=== PATIENT | female | born 1935 | race Caucasian/White ===

== ENCOUNTER 2020-08-20 16:50 | Outpatient (REF) | payer MEDICARE, SELFPAY | END 2020-08-20 16:51 | disposition home or self-care (01) | LOC: HO.LNP 16:50 | PROVIDERS: Visit Provider Hospitalist | DX: R30.0 Dysuria (principal) | CPT/HCPCS: 87086; 87088; 87186 ==

== ENCOUNTER 2020-09-02 15:04 | Outpatient (REF) | payer MEDICARE, SELFPAY ==
[2020-09-02 17:24] LABS: Free T4 (Free Thyroxine) 0.97 ng/dL (0.71-1.85); Thyroid Stimulating Hormone 1.64 uIU/mL (0.32-4.0)
== END 2020-09-02 15:05 | disposition home or self-care (01) ==
LOC: HO.LAB 15:04
PROVIDERS: PCP Nurse Practitioner Family; Visit Provider Internal Medicine Endocrinology, Diabetes & Metabolism
DX: E04.2 Nontoxic multinodular goiter (principal)
CPT/HCPCS: 36415; 84439; 84443

== ENCOUNTER → 2020-09-07 10:07 | Outpatient (BNVA) | payer MEDICARE, SELFPAY | PROVIDERS: PCP Nurse Practitioner Family; Visit Provider Internal Medicine Endocrinology, Diabetes & Metabolism | DX: Z13.89 Encounter for screening for other disorder (principal) | CPT/HCPCS: 99212 ==

== ENCOUNTER 2020-10-12 11:37 | Outpatient (REF) | payer MEDICARE, SELFPAY ==
--- NOTE | ~2020-10-12 | MM_ITS ---
EXAMINATION: MM SCREENING DIGITAL BREAST TOMOSYNTHESIS, RIGHT CLINICAL INFORMATION: Screening. Asymptomatic. History left mastectomy 2004. Due for yearly exam. COMPARISON: Mammography: 10/25/2018, 10/20/2017, 09/28/2016 TECHNIQUE: Digital breast tomosynthesis is performed in both the craniocaudal and mediolateral oblique views along with computer-aided detection (CAD). Synthesized 2D images are generated from the tomosynthesis. FINDINGS: There are scattered areas of fibroglandular density (ACR BI-RADS breast composition Category b). There are no significant masses, abnormal calcifications, or other abnormalities. There is no developing density. Scattered ductal secretory, vascular, and small round calcifications are again seen. The axilla and skin contours are unremarkable. MM/MM tomosynthesis screening RT IMPRESSION: No mammographic evidence of malignancy. ASSESSMENT: BI-RADS 2: Benign RECOMMENDATION: Routine annual mammography screening. This patient's information was entered into a reminder system with a target due date for their next mammogram.
== END 2020-10-12 11:38 | disposition home or self-care (01) ==
LOC: HO.MAMMO 11:37
PROVIDERS: PCP Nurse Practitioner Family; Visit Provider Internal Medicine Medical Oncology
DX: Z12.31 Encounter for screening mammogram for malignant neoplasm of breast (principal)
CPT/HCPCS: 77063; 77067

== ENCOUNTER 2020-11-16 09:47 | Outpatient (REF) | payer MEDICARE, SELFPAY ==
--- NOTE | ~2020-11-16 | US_ITS ---
EXAMINATION: US THYROID CLINICAL INFORMATION: Nontoxic multinodular goiter. COMPARISON: Ultrasound soft tissue head/neck thyroid dated 11/14/2019 and 08/02/2018. TECHNIQUE: Linear transducer grayscale and color Doppler examination with attention to the region of the thyroid. FINDINGS: SIZE: Measurements of the thyroid lobes and nodules are given in sagittal, anteroposterior and transverse dimensions respectively. Right Thyroid Lobe: 7.2 x 4.3 x 5.4 cm, volume 88.3 mL. Previously 7.1 x 3.9 x 5.1 cm, volume 73.2 mL. Parenchyma: The gland echotexture is heterogeneous. Thyroid vascularity is increased. Left Thyroid Lobe: 2.9 x 1.4 x 1.5 cm, volume 3.1 mL. Previously 2.2 x 1.5 x 1.2 cm, volume 3.2 mL. Parenchyma: The gland echotexture is homogeneous. Thyroid vascularity is normal. Isthmus: 0.6 cm in maximum AP dimension. Previously 0.6 cm. Estimated total number of nodules greater than or equal to 1 cm: Question 1. There is a question of replacement of the entire right lobe with a complex partially solid partially cystic nodule with calcification. Does not appear appreciably changed radius exams. NODES: No lymphadenopathy is seen in the tissue surrounding the thyroid gland. US/US thyroid IMPRESSION: Enlarged right lobe. The right lobe is heterogeneous and hypervascular. There is again question of replacement of the entire right lobe with a complex partially solid partially cystic nodule with calcifications. This does not appear appreciably changed from previous exams.
== END 2020-11-16 09:48 | disposition home or self-care (01) ==
LOC: HO.US 09:47
PROVIDERS: PCP Nurse Practitioner Family; Visit Provider Internal Medicine Endocrinology, Diabetes & Metabolism
DX: E04.2 Nontoxic multinodular goiter (principal)
CPT/HCPCS: 76536

== ENCOUNTER → 2021-03-02 09:07 | Outpatient (BNV) | payer MEDICARE, SELFPAY | PROVIDERS: Visit Provider Internal Medicine Medical Oncology | DX: Z85.3 Personal history of malignant neoplasm of breast (principal) | CPT/HCPCS: 99213 ==

== ENCOUNTER 2021-09-08 09:57 | Outpatient (REF) | payer MEDICARE, SELFPAY ==
--- NOTE | ~2021-09-08 | US_ITS ---
EXAMINATION: US THYROID CLINICAL INFORMATION: Nontoxic multinodular goiter. COMPARISON: Thyroid ultrasound 11/16/2020 and 11/14/2019. Ultrasound-guided thyroid biopsy 11/01/2018. TECHNIQUE: Linear transducer hui-scale and color Doppler examination with attention to the region of the thyroid. FINDINGS: SIZE: Measurements of the thyroid lobes and nodules are given in sagittal, anteroposterior and transverse dimensions respectively. Right Thyroid Lobe: 7.8 x 4.7 x 6.8 cm, volume 128.3 mL. Previously 7.2 x 4.3 x 5.4 cm, volume 88.3 mL. Parenchyma: The gland echotexture is heterogeneous. Thyroid vascularity is increased. Left Thyroid Lobe: 3.5 x 1.5 x 1.2 cm, volume 3.3 mL. Previously 2.9 x 1.4 x 1.5 cm, volume 3.1 mL. Parenchyma: The gland echotexture is homogeneous. Thyroid vascularity is normal. Isthmus: 0.4 cm in maximum AP dimension. Previously 0.6 cm. Estimated total number of nodules greater than or equal to 1 cm: 1. 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 Location: Entire right lobe. It is heterogeneous, irregular shaped, with no increased echogenicity. NODES: No lymphadenopathy is seen in the tissue surrounding the thyroid gland. US/US thyroid IMPRESSION: Significantly enlarged right thyroid gland from a large nodule occupying the entire gland. ACR TI-RADS RECOMMENDATION REFERENCE: Ultrasound-guided fine-needle aspiration, followup ultrasound, no further follow up. * TR1 (0 point) and TR 2 (2 points): No FNA or follow up * TR3 (3 points): FNA if more than or equal to 2.5 cm in maximum dimension, followup ultrasound in 1, 3 and 5 years if 1.5 to 2.4 cm in maximum dimension. * TR4 (4-6 points): FNA if more than or equal to 1.5 cm in maximum dimension, followup ultrasound in 1, 2, 3 and 5 years if 1 to 1.4 cm in maximum dimension. * TR5 (more than or equal to 7 points): FNA if more than or equal to 1 cm in maximum dimension, followup ultrasound every year for 5 years if 0.5 to 0.9 cm in maximum dimension. * TR3, TR4 or TR5 nodules that are below the size threshold for follow up receive no follow up.
== END 2021-09-08 09:58 | disposition home or self-care (01) ==
LOC: HO.US 09:57
PROVIDERS: Visit Provider Internal Medicine Endocrinology, Diabetes & Metabolism
DX: E04.2 Nontoxic multinodular goiter (principal)
CPT/HCPCS: 76536

== ENCOUNTER → 2021-09-17 13:56 | Outpatient (BNVA) | payer MEDICARE, SELFPAY | PROVIDERS: PCP Nurse Practitioner Family; Visit Provider Internal Medicine Endocrinology, Diabetes & Metabolism | DX: E04.2 Nontoxic multinodular goiter (principal) | CPT/HCPCS: 99212 ==

== ENCOUNTER 2021-09-29 09:54 | Outpatient (REF) | payer MEDICARE, SELFPAY ==
[2021-09-29 11:08] LABS: Alanine Aminotransferase 20 U/L (0-31); Alkaline Phosphatase 67 U/L (39-117); Anion Gap 11 (12-20); Aspartate Amino Transferase 24 U/L (5-31); Bilirubin Total 0.7 mg/dL (0.0-1.0); Blood Urea Nitrogen 11 mg/dL (9-16); Calcium 9.8 mg/dL (8.4-10.2); Carbon Dioxide 30 mmol/L (22-29); Chloride 97 mmol/L (96-108); Cholesterol 163 mg/dL; Estimated Glomerular Filt Rate > 60; Glucose Fasting 116 mg/dL (60-99); HDL Cholesterol 61 mg/dL; LDL Cholesterol Calculated 86 mg/dl; Potassium 4.4 mmol/L (3.3-5.1); Sodium 134 mmol/L (135-145); Total Protein 6.4 g/dL (6.5-8.0); Triglycerides 84 mg/dL
[2021-09-29 11:32] LABS: Free T4 (Free Thyroxine) 0.99 ng/dL (0.71-1.85); Thyroid Stimulating Hormone 2.02 uIU/mL (0.32-4.0)
[2021-09-29 15:56] LABS: Appearance Urine CLEAR; Color Urine YELLOW; Glucose Urine UA NEG (NEG); Leukocyte Esterase Urine 2+ (NEG); Nitrite Urine POS (NEG); UACC Culture Trigger YES; Urine Blood NEG (NEG); Urine Ketones NEG (NEG); Urine Protein NEG (NEG-TRACE)
[2021-09-29 16:08] LABS: Bacteria Urine 4+ /LPF; RBC Urine 0 /HPF (0); Squamous Epithelial Cell Urine 1+ /LPF
== END 2021-09-29 09:55 | disposition home or self-care (01) ==
LOC: HO.LAB 09:54
PROVIDERS: PCP Nurse Practitioner Family; Visit Provider Internal Medicine Endocrinology, Diabetes & Metabolism
DX: E04.2 Nontoxic multinodular goiter (principal); I10 Essential (primary) hypertension
CPT/HCPCS: 36415; 80053; 80061; 81001; 81003; 84439; 84443; 87086

== ENCOUNTER 2021-10-13 11:47 | Outpatient (REF) | payer MEDICARE, SELFPAY ==
--- NOTE | ~2021-10-13 | MM_ITS ---
EXAMINATION: MM SCREENING DIGITAL BREAST TOMOSYNTHESIS, RIGHT CLINICAL INFORMATION: Left mastectomy, 2005. Due for yearly exam. Screening. COMPARISON: Mammography: 10/12/2020, 10/25/2018, 10/20/2017, 09/28/2016 TECHNIQUE: Digital breast tomosynthesis is performed in both the craniocaudal and mediolateral oblique views along with computer-aided detection (CAD). Synthesized 2D images are generated from the tomosynthesis. FINDINGS: There are scattered areas of fibroglandular density (ACR BI-RADS breast composition Category b). Findings fibronodular parenchymal pattern is similar to prior studies. There are scattered vascular and ductal secretory and some round calcifications again noted. No developing density or interval architectural abnormality. The axilla and skin contours are unremarkable. MM/MM tomosynthesis screening RT IMPRESSION: No mammographic evidence of malignancy. ASSESSMENT: BI-RADS 2: Benign RECOMMENDATION: Routine annual mammography screening. This patient's information was entered into a reminder system with a target due date for their next mammogram.
== END 2021-10-13 11:48 | disposition home or self-care (01) ==
LOC: HO.MAMMO 11:47
PROVIDERS: PCP Nurse Practitioner Family; Visit Provider Internal Medicine Medical Oncology
DX: Z12.31 Encounter for screening mammogram for malignant neoplasm of breast (principal)
CPT/HCPCS: 77063; 77067

== ENCOUNTER 2021-10-20 10:48 | Outpatient (REF) | payer MEDICARE, SELFPAY ==
--- NOTE | ~2021-10-20 | MM_ITS ---
EXAMINATION: BONE DENSITOMETRY CLINICAL INDICATION: Asymptomatic menopausal state. COMPARISON: Previous BD dated 10/25/2018 and baseline BD dated 10/18/2007. TECHNIQUE: Using a [employer] DXA System (software version: 13.1) manufactured by [employer], dual-energy x-ray absorptiometry was performed of the lumbar spine and right hip. The images are of good technical quality. Summary results are attached. FINDINGS: AP SPINE L1-L4: Current: BMD 1.323 g/cm2, Z-score 2.6, T-score 1.2, normal, 0.7% decrease from previous, 10.4% increase from baseline (<5% change is not significant). Prior: BMD 1.332 g/cm2. Baseline: BMD 1.198 g/cm2. RIGHT FEMUR, NECK: Current: BMD 1.042 g/cm2, Z-score 2.1, T-score 0.0, normal. Prior: BMD 0.997 g/cm2. Baseline: BMD 1.005 g/cm2. RIGHT FEMUR, TOTAL: Current: BMD 1.070 g/cm2, Z-score 2.5, T-score 0.5, normal, 2.6% increase from previous, 0.2% decrease from baseline (<5% change is not significant). Prior: BMD 1.043 g/cm2. Baseline: BMD 1.072 g/cm2. IDENTIFIED RISK FACTORS: Height loss, thiazide, menopause, hysterectomy. HISTORY OF FRACTURE: None listed. MEDICATIONS: Calcium supplements or multivitamin, vitamin D. MM/XR DEXA axial skeleton IMPRESSION: 1. DIAGNOSIS: Normal bone density based on the lowest T-score value of 0.0 in the femoral neck applying World Health Organization criteria. 2. 10-YEAR FRACTURE RISK PREDICTION, FRAX: According to the guidelines, FRAX calculation should only be performed on patients in the osteopenia bone density category. Therefore, FRAX was not performed on this patient. 3. Treatment Recommendations: NOF guidelines recommend consideration for treatment in postmenopausal women and men age 50 and older presenting with the following: -A hip or vertebral (clinical or morphometric) fracture. -T-score less than or equal to -2.5 at the femoral neck or spine after appropriate evaluation to exclude secondary causes. -Low bone mass at the hip or spine and a 10-year fracture probability by FRAX of greater than or equal to 3% for hip fracture or greater than or equal to 20% for major osteoporotic fracture based on the [place] adapted WHO algorithm. 4. Other Recommendations: All treatment decisions require clinical judgment and consideration of individual patient factors, including patient preferences, comorbidities, previous drug use, risk factors not captured in the FRAX model (e.g. frailty, falls, vitamin D deficiency, increased bone turnover, interval significant decline in bone density) and possible under or overestimation of fracture risk by FRAX. FUTURE SCAN RECOMMENDATION: People with diagnosed cases of osteoporosis or at high risk for fracture should have regular bone mineral density tests. For patients eligible for Medicare, routine testing is allowed once every 2 years. The testing frequency can be increased to one year for patients who have rapidly progressing disease, those who are receiving or discontinuing medical therapy to restore bone mass, or have additional risk factors.
== END 2021-10-20 10:49 | disposition home or self-care (01) ==
LOC: HO.MAMMO 10:48
PROVIDERS: PCP Nurse Practitioner Family; Visit Provider Nurse Practitioner Family
DX: Z13.820 Encounter for screening for osteoporosis (principal); Z78.0 Asymptomatic menopausal state; Z79.899 Other long term (current) drug therapy; Z90.710 Acquired absence of both cervix and uterus
CPT/HCPCS: 77080

== ENCOUNTER 2022-03-29 09:25 | Outpatient (REF) | payer MEDICARE, SELFPAY ==
[2022-03-29 11:29] LABS: MANUAL DIFF FLAG NO
[2022-03-29 11:43] LABS: Basophils Percent Auto 0.4 % (0-2); Eosinophils Absolute Auto 0.1 X10*3/uL (0.0-0.4); Eosinophils Percent Auto 2.6 % (0-4); Hematocrit 39.7 % (37.0-47.0); Hemoglobin 13.2 g/dl (12.0-16.0); Imm Gran Abs Auto 0.03 X10*3/uL (0.00-0.03); Imm Gran Pct Auto 0.6 % (0.0-0.4); Lymphocytes Percent Auto 17.9 % (20-40); Mean Corpuscular HGB Conc 33.2 g/dl (31.0-35.0); Mean Corpuscular Hemoglobin 29.9 pg (27.0-33.0); Mean Platelet Volume 10.6 fL (9.4-12.3); Monocytes Absolute Auto 0.7 X10*3/uL (0.1-1.2); Monocytes Percent Auto 12.9 % (2-11); Neutrophils Absolute Auto 3.5 x10*3/uL (2.0-8.3); Neutrophils Percent Auto 65.6 % (45-73); Platelet Count 248 X10*3/uL (160-400); Red Blood Count 4.41 X10*6/uL (4.20-5.50); Red Cell Distribution Width 13.7 % (11.0-16.0); White Blood Count 5.4 X10*3/uL (4.8-10.8)
[2022-03-29 11:59] LABS: Alanine Aminotransferase 20 U/L (0-31); Albumin Level 4.2 g/dL (3.5-5.0); Alkaline Phosphatase 69 U/L (39-117); Anion Gap 15 (12-20); Aspartate Amino Transferase 27 U/L (5-31); Blood Urea Nitrogen 9 mg/dL (9-16); Calcium 9.3 mg/dL (8.4-10.2); Carbon Dioxide 29 mmol/L (22-29); Chloride 94 mmol/L (96-108); Cholesterol 159 mg/dL; Estimated Glomerular Filt Rate > 60; Glucose Fasting 104 mg/dL (60-99); HDL Cholesterol 63 mg/dL; LDL Cholesterol Calculated 81 mg/dl; Potassium 4.4 mmol/L (3.3-5.1); Sodium 134 mmol/L (135-145); Total Protein 6.7 g/dL (6.5-8.0); Triglycerides 79 mg/dL
[2022-03-29 14:33] LABS: Appearance Urine Clear; Color Urine Yellow; Glucose Urine UA Negative (Negative); Leukocyte Esterase Urine Large (3+) (Negative); Nitrite Urine Positive (Negative); PH 6.5 (5.0-9.0); UMIC TRIGGER UACC YES; Urine Blood Negative (Negative); Urine Ketones Negative (Negative); Urine Protein Negative (Neg-Trace)
[2022-03-29 15:00] LABS: Bacteria Urine 4+ (None Seen); Hyaline Casts Urine 0-2 /LPF (0-2); RBC Urine 0-2 /HPF (0-2); Squamous Epithelial Cell Urine 0-2 /HPF (0-2); UACC Culture Trigger YES; WBC Urine 21-50 /HPF (0-5)
[2022-04-01 00:23] LABS: TS Negative Control Passed; TS Panel A 0; TS Panel B 0; TS Positive Control Passed; TSpotTB Negative (Negative)
== END 2022-03-29 09:26 | disposition home or self-care (01) ==
LOC: HO.HMGCLDS 09:25
PROVIDERS: PCP Nurse Practitioner Family; Visit Provider Nurse Practitioner Family
DX: Z11.1 Encounter for screening for respiratory tuberculosis (principal); I10 Essential (primary) hypertension
CPT/HCPCS: 36415; 80053; 80061; 81001; 85025; 86481; 87086; 87088; 87186

== ENCOUNTER → 2022-09-20 09:57 | Outpatient (BNVA) | payer MEDICARE, SELFPAY | PROVIDERS: PCP Nurse Practitioner Family; Visit Provider Internal Medicine Endocrinology, Diabetes & Metabolism | DX: E04.2 Nontoxic multinodular goiter (principal) | CPT/HCPCS: 36415; 84439; 84443; 99212 ==

== ENCOUNTER 2022-10-31 09:40 | Outpatient (REF) | payer MEDICARE, SELFPAY ==
--- NOTE | ~2022-10-31 | MM_ITS ---
EXAMINATION: MM SCREENING DIGITAL BREAST TOMOSYNTHESIS, RIGHT CLINICAL INFORMATION: Due for yearly. Screening. Prior left mastectomy, 2004. COMPARISON: Mammography: 10/13/2021, 10/12/2020, 10/25/2018 TECHNIQUE: Digital breast tomosynthesis is performed in both the craniocaudal and mediolateral oblique views along with computer-aided detection (CAD). Synthesized 2D images are generated from the tomosynthesis. FINDINGS: There are scattered areas of fibroglandular density (ACR BI-RADS breast composition Category b). There are no significant masses, abnormal calcifications, or other abnormalities. There are scattered ductal secretory and vascular and some benign round calcifications again noted. The axilla and skin contours are unremarkable. No significant changes from prior studies. MM/MM tomosynthesis screening RT IMPRESSION: No mammographic evidence of malignancy. ASSESSMENT: BI-RADS 2: Benign RECOMMENDATION: Routine annual mammography screening. This patient's information was entered into a reminder system with a target due date for their next mammogram.
== END 2022-10-31 09:41 | disposition home or self-care (01) ==
LOC: HO.MAMMO 09:40
PROVIDERS: PCP Nurse Practitioner Family; Visit Provider Nurse Practitioner Family
DX: Z12.31 Encounter for screening mammogram for malignant neoplasm of breast (principal)
CPT/HCPCS: 77063; 77067

== ENCOUNTER → 2023-01-04 09:45 | Outpatient (REF) | payer MEDICARE, SELFPAY ==
--- NOTE | 2023-01-04 09:48 | CA_ITS ---
Transthoracic Echocardiogram Patient (Last, First, Middle): Velia Esparza, Gender: Female Date of : 1935 Age: 87 Procedure Date: 01/04/2023 Procedure Type: Transthoracic Echocardiogram Location: OP Height: 187.96 cm Weight: 72.58 kg BSA: 1.98 m2 Heart Rate: 69 bpm BP: 148 / 70 mmHg Gun Perforator: JANAY Referring MD: David Lane [facility] Health Information Provider: Galdino Fonseca MD Symptoms: R01.1 - Cardiac murmur, unspecified Study Quality: Adequate ECG Rhythm: Sinus Conclusions: - 1. Normal LV systolic function with pseudonormal filling pattern 2. Mildly dilated left atrium 3. Normal cardiac valvular Doppler 4. Moderately elevated right ventricular systolic pressure 5. No gross pericardial effusion Findings Left Ventricle Normal left ventricular size, thickness, and systolic function. The visually estimated ejection fraction is between 60-65%. Spectral Doppler is indicative of a pseudonormal filling pattern. E/E prime ratio is between 8 and 15 consistent with indeterminate filling pressures. Peak GLS is -14.1%, which is mildly reduced. Right Ventricle Normal right ventricular cavity size and systolic function. Atria The left atrium is mildly dilated. There is no evidence of interatrial shunt. The right atrium is likely dilated. Aortic Valve There is mild calcification of the aortic valve. There is no evidence of thickening of the aortic valve. There is no aortic valve stenosis. There is no aortic valve regurgitation. Mitral Valve There is mild anterior and posterior mitral leaflet thickening. There is trace mitral valve regurgitation. There is no mitral valve stenosis. Pulmonic Valve The pulmonic valve is likely normal. There is trace to mild pulmonic valve regurgitation. Tricuspid Valve Normal tricuspid valve structure. There is mild tricuspid valve regurgitation. Normal right atrial pressure. Mild pulmonary hypertension is present. Great Vessels All visible segments of the aorta are normal in size. The pulmonary artery was not well visualized. Venous The inferior vena cava is normal in size and collapses greater than 50% with inspiration. Pericardium/Pleural There is no evidence of pericardial effusion. Prior Study Comparison No prior study available for comparison. Measurements 2D Linear Measurements IVSd: 0.90 0.6-0.9/0.6-1.0 cm LVIDd: 4.80 3.9-5.3/4.2-5.9 cm LVIDd Index: 2.42 2.4-3.2/2.2-3.1 cm/m2 LVIDs: 3.10 2.0-3.6 cm LVPWd: 0.80 0.7-1.1 cm LA Diam: 3.30 2.7-3.8/3.0-4.0 cm LAIDs Index: 1.67 1.5-2.3 cm/m2 LV Mass: 170.59 67-162/88-224 g LV Mass Index: 86.16 43-95/49-115 g/m2 LVOT Diam: 2.00 3.0+(-)1.3 cm 2D Systolic Function EF 4C: 50.40 >55% EF 2C: 71.50 >55% EF BiP: 62.00 >55% Mitral Valve MV Pk E: 0.89 MV PK A: 0.34 MV Decel Time: 229.00 E/A: 2.60 E'Lateral: 7.51 E'Medial: 5.44 E/E' Med: 16.40 E/E' Lat: 11.90 PHT: 67.00 MVA PHT: 3.28 Decel [place]: 3.90 Aortic Valve AoV Pk Josue: 1.31 AoV Pk Grad: 7.00 JOSEY: 2.33 LVOT LVOT Pk Josue: 0.92 LVOT Mn Josue: 0.68 LVOT VTI: 0.22 LVOT Pk Grad: 3.00 LVOT Mn Grad: 2.00 LVOT Diam: 2.00 LVOT Area: 3.14 Diastolic Function MV Pk E: 0.89 MV Pk A: 0.34 E/A: 2.60 E'Medial: 5.44 E/E' Med: 16.40 E' Laterial: 7.51 E/E' Lat: 11.90 Right Ventricle TAPSE (mm): 23.00 TVS' Josue: 12.60 Tricuspid Valve TR Pk Josue: 3.39 TR Pk Grad: 46.00 RA Press: 3.00 RVSP: 49.00 Great Vessels Aorta Sinus of Valsalva: 3.10 2.0-3.5 cm Ao Asc: 3.20 2.1-3.4 cm Pulmonary Veins Pulm Vein S/D 0.50 Pulmonary Valve PV Pk Josue: 0.64 Peak PV Grad: 2.00 Updated in Other Vendor System with Status of Final Galdino Fonseca MD electronically signed on 01/04/2023 12:58:14 PM with status of Final
== END ==
LOC: HO.CARD 09:45
PROVIDERS: PCP Nurse Practitioner Family; Visit Provider Nurse Practitioner Family
DX: R01.1 Cardiac murmur, unspecified (principal)
CPT/HCPCS: 93306; 93356

== ENCOUNTER → 2023-01-04 09:48 | Outpatient (BNV) | payer MEDICARE, SELFPAY | PROVIDERS: PCP Nurse Practitioner Family; Visit Provider Internal Medicine Cardiovascular Disease | DX: I35.8 Other nonrheumatic aortic valve disorders (principal); I36.1 Nonrheumatic tricuspid (valve) insufficiency | CPT/HCPCS: 93306 ==

== ENCOUNTER 2023-04-18 12:04 | Outpatient (AMB) | payer MEDICARE, SELFPAY ==
--- NOTE | 2023-04-18 14:05 | AM.OFFWIN_ITS ---
Intake Vital Signs 04/18/23 14:06 Height 5 ft 2 in Weight 159 lb 2 oz BMI 29.1 BP 130/80 Blood Pressure Location Rt brachial Position Sitting Pulse 86 Pulse Source Pulse Oximeter Temp 98.6 F Temp Source Oral Pulse Oximetry (%) 99 Oxygen Delivery Method Room Air Intake Visit Reasons: EST/SOB, Diarrhea, weakness ongoing(masked lobby) Intake Note: pt had her PCV vaccine Fri and started with Flu sx 8 hrs later Sat she Had a fever Sun no fever but she has diarrhea and she feels weak and has no appetite Patient Tobacco Use Status: Never used Tobacco Allergies codeine [Codeine] Allergy (Mild, Verified 04/18/23 14:37) VOMITING sulfamethoxazole [From Bactrim] Allergy (Mild, Verified 04/18/23 14:37) Headache trimethoprim [From Bactrim] Allergy (Mild, Verified 04/18/23 14:37) Headache atorvastatin [Lipitor] Adverse Reaction (Unknown, Verified 04/18/23 14:37) Myalgia Codeine Sulfate Adverse Reaction (Unknown, Uncoded 04/18/23 14:37) Vomiting Medication List - Last Reconciled 04/18/23 by Davdi Bradley MD albuterol sulfate 90 mcg/actuation (ProAir HFA) 2 puffs inhalation Q6H PRN 30 days ascorbate calcium (vitamin C) 500 mg PO DAILY aspirin (Adult Low Dose Aspirin) 81 mg PO DAILY atenolol 25 mg PO DAILY atorvastatin 20 mg PO DAILY cholecalciferol (vitamin D3) 25 mcg PO DAILY gabapentin 300 mg PO DAILY hydrochlorothiazide 12.5 mg PO DAILY tkgwkire-afn-pluk-FA-vit K-lut 8 mg iron-400 mcg-50 mcg (Centrum Silver Women) 1 tab PO DAILY HPI EST/SOB, Diarrhea, weakness ongoing(masked lobby) HPI Details 87-year-old female presents to the [facility] for a sick visit. Patient had a pneumonia shot on Monday last. 8 hours after the injection, she started having headache, low-grade fever and nausea. Symptoms lasted for 2 days and she started having diarrhea. Diarrhea was mostly during the daytime. Minimal cramping. Today she is feeling slightly short of breath. [facility] Medical History (Updated 04/18/23 @ 14:53 by David Bradley MD) Atrial fibrillation Nail fungus Non-toxic multinodular goiter Surgical History Hx of blepharoplasty Hx of cholecystectomy Hx of appendectomy Hx of hysterectomy History of left hip replacement Hx of total knee replacement H/O total mastectomy of left breast Family History Other No family history of cancer Social History Household Members: None Housing: House Are you a primary care navigator to a significant other at home: No Do you presently have visiting nurse or other home services: No Alcohol intake: current Patient Tobacco Use Status: Never used Tobacco e-Cigarette/Vaping Use: Never Used Second Hand Smoke Exposure: No service: No Current occupational status: retired Cognitive needs: No Hearing needs: No Vision needs: No Physical Exam Vital Signs: Last Vital Signs Temp 98.6 F 04/18/23 14:06 Pulse 86 04/18/23 14:06 BP 130/80 04/18/23 14:06 Pulse Ox 99 04/18/23 14:06 Oxygen Delivery Method Room Air 04/18/23 14:06 BMI result Body Mass Index 29.1 Const General: cooperative and healthy appearing Nutritional Appearance: well nourished Orientation/consciousness: patient oriented x3 Limitations: no limitations HEENT Head: Yes normal to inspection Eyes General: appearance normal, both eyes and all related structures Neck Neck: Yes normal visual inspection Chest Chest palpation & inspection: normal palpation of entire chest wall Resp Effort & Inspection: normal respiratory effort Cardio Other: Irregular heart rate with tachycardia. Neuro General: patient oriented x3 Assessment & Plan Assessment & Plan (1) Atrial fibrillation: Code(s): I48.91 - Unspecified atrial fibrillation Plan: This is new onset. EKG done today shows atrial fibrillation with a ventricular response of 82 per minute. Matteo score of 4. Chest x-ray was reviewed by me. Blood work has been ordered to check renal function. apixaban has been started. Patient will be contacted by cardiology soon. Orders: Orders XR chest 2V Today R05.9 - Cough, unspecified Basic Metabolic Panel Today I48.91 - Unspecified atrial fibrillation Complete Blood Count no Diff Today I48.91 - Unspecified atrial fibrillation Thyroid Stimulating Hormone Today I48.91 - Unspecified atrial fibrillation AMB EKG-In Office Today R07.9 - Chest pain, unspecified SARS-CoV2/FLU/RSV Today I48.91 - Unspecified atrial fibrillation, R43.9 - Unspecified disturbances of smell and taste Liver Panel Today I48.91 - Unspecified atrial fibrillation Erythrocyte Sedimentation Rate Today I48.91 - Unspecified atrial fibrillation Coding Level of Care Code Est Pt Level 4 (61136) Diagnoses Atrial fibrillation I48.91
[2023-04-18 14:06] VITALS: BP 130/80; PULSE 86; TEMP 37; O2SAT 99; BMI 29.1
== END 2023-04-18 15:25 | disposition home or self-care (01) ==
PROVIDERS: PCP Nurse Practitioner Family; Visit Provider Internal Medicine
DX: I48.91 Unspecified atrial fibrillation (principal)
CPT/HCPCS: 99214

== ENCOUNTER 2023-04-18 14:51 | Outpatient (REF) | payer MEDICARE, SELFPAY ==
--- NOTE | ~2023-04-18 | XR_ITS ---
EXAMINATION: XR CHEST CLINICAL INFORMATION: Cough, unspecified COMPARISON: Chest 10/07/2015 TECHNIQUE: 2 views of the chest were obtained. FINDINGS: The lungs are hyperinflated with flattening of the hemidiaphragms. No focal consolidation, interstitial pulmonary edema or pneumothorax. No pleural effusion. Mild biapical pleural thickening is again noted. No significant abnormality is noted involving the heart, mediastinum, bony thorax or soft tissues. XR/XR chest 2V IMPRESSION: No acute cardiopulmonary disease.
[2023-04-18 16:25] LABS: Hematocrit 43.8 % (37.0-47.0); Hemoglobin 14.4 g/dl (12.0-16.0); Mean Corpuscular HGB Conc 32.9 g/dl (31.0-35.0); Mean Corpuscular Volume 88.1 fL (80.0-98.0); Mean Platelet Volume 11.3 fL (9.4-12.3); Platelet Count 212 X10*3/uL (160-400); Red Blood Count 4.97 X10*6/uL (4.20-5.50); Red Cell Distribution Width 14.2 % (11.0-16.0); White Blood Count 4.3 X10*3/uL (4.8-10.8)
[2023-04-18 17:08] LABS: Alanine Aminotransferase 25 U/L (0-31); Albumin Level 4.2 g/dL (3.5-5.0); Alkaline Phosphatase 67 U/L (39-117); Anion Gap 16 (12-20); Aspartate Amino Transferase 37 U/L (5-31); Bilirubin Direct 0.3 mg/dL (0.0-0.5); Bilirubin Total 0.7 mg/dL (0.0-1.0); Blood Urea Nitrogen 19 mg/dL (9-16); Calcium 9.9 mg/dL (8.4-10.2); Carbon Dioxide 26 mmol/L (22-29); Chloride 96 mmol/L (96-108); Estimated Glomerular Filt Rate 59; Glucose Random 101 mg/dL (60-115); Potassium 4.1 mmol/L (3.3-5.1); Sodium 134 mmol/L (135-145); Total Protein 7.2 g/dL (6.5-8.0)
[2023-04-18 17:23] LABS: Thyroid Stimulating Hormone 2.12 uIU/mL (0.32-4.0)
[2023-04-18 17:33] LABS: Erythrocyte Sedimentation Rate 12 MM/HR (0-20)
[2023-04-18 18:00] LABS: Influenza A PCR NEGATIVE (Negative); Influenza B PCR NEGATIVE (Negative); Resp Syncy Virus RNA Qual PCR NEGATIVE (Negative); SARS COV2 PCR INHOUSE POSITIVE (Negative)
== END 2023-04-18 14:52 | disposition home or self-care (01) ==
LOC: HO.HMGCX 14:51
PROVIDERS: PCP Nurse Practitioner Family; Visit Provider Internal Medicine
DX: R05.9 Cough, unspecified (principal); I48.91 Unspecified atrial fibrillation; R43.9 Unspecified disturbances of smell and taste; Z20.822 Contact with and (suspected) exposure to COVID-19
CPT/HCPCS: 0241U; 36415; 71046; 80048; 80076; 84443; 85027; 85652

== ENCOUNTER 2023-04-19 12:41 | Outpatient (AMB) | payer MEDICARE, SELFPAY ==
[2023-04-19 13:19] VITALS: BP 126/70; PULSE 93; BMI 28.6
--- NOTE | 2023-04-19 13:19 | A.OFFVIS_ITS ---
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 Intake Note: New patient new onset afib c/o fatigue and sob since last week Reimbursement Representative Required: No Allergies codeine [Codeine] Allergy (Mild, Verified 04/18/23 14:37) VOMITING sulfamethoxazole [From Bactrim] Allergy (Mild, Verified 04/18/23 14:37) Headache trimethoprim [From Bactrim] Allergy (Mild, Verified 04/18/23 14:37) Headache atorvastatin [Lipitor] Adverse Reaction (Unknown, Verified 04/18/23 14:37) Myalgia Codeine Sulfate Adverse Reaction (Unknown, Uncoded 04/18/23 14:37) Vomiting Medication List - Last Reconciled 04/19/23 by Galdino Fonseca MD albuterol sulfate 90 mcg/actuation (ProAir HFA) 2 puffs inhalation Q6H PRN 30 days ascorbate calcium (vitamin C) 500 mg PO DAILY aspirin (Adult Low Dose Aspirin) 81 mg PO DAILY atenolol 25 mg PO DAILY atorvastatin 20 mg PO DAILY cholecalciferol (vitamin D3) 25 mcg PO DAILY gabapentin 300 mg PO DAILY hydrochlorothiazide 12.5 mg PO DAILY odyfbejm-smp-dfet-FA-vit K-lut 8 mg iron-400 mcg-50 mcg (Centrum Silver Women) 1 tab PO DAILY HPI HPI Comments History of Present Illness Details Thank you for referring Velia in cardiology consultation today for newly detected atrial fibrillation. She is a pleasant and independent 87-year-old woman who lives in independent facility taking care of her daily chores and activities. Patient has longstanding history of hypertension, thyroid goiter, since last Monday was not feeling well. She says she felt like she had flu and felt fatigued and tired. She did not try to take her pulse but this was noted to be retic. She subsequently came to urgent care yesterday and was detected to be in atrial fibrillation/flutter which is new onset for her. She was rate controlled yesterday and after discussion we had discussed about starting on oral anticoagulation therapy however she was pending a blood work results. Her creatinine is noted to be 0.9 with TSH within normal limits. She continues to have symptoms of fatigue and tiredness and says she feels mildly lightheaded. She denies any orthopnea, PND, leg edema. Denies any exertional chest pain. This symptoms are new. She has no prior cardiovascular history as per her. She had an echocardiogram few months ago which showed normal LV systolic function with pseudonormal filling pattern with mild left atrial enlargement and elevated right ventricular systolic pressure overall findings consistent with diastolic dysfunction. [facility] Medical History Atrial fibrillation Nail fungus Non-toxic multinodular goiter Surgical History Hx of blepharoplasty Hx of cholecystectomy Hx of appendectomy Hx of hysterectomy History of left hip replacement Hx of total knee replacement H/O total mastectomy of left breast Family History Other No family history of cancer Social History Household Members: None Housing: House Are you a primary director of career services to a significant other at home: No Do you presently have visiting nurse or other home services: No Alcohol intake: current Patient Tobacco Use Status: Never used Tobacco e-Cigarette/Vaping Use: Never Used Second Hand Smoke Exposure: No service: No Current occupational status: retired Cognitive needs: No Hearing needs: No Vision needs: No Review of Systems Const Denies chills, Denies daytime sleepiness, Denies fatigue, Denies fever(s), Denies frequent falls, Denies poor appetite, Denies snoring, Denies stops breathing during sleep, Denies weakness, Denies weight gain and Denies weight loss Eyes Denies loss of vision ENT Denies dizziness and Denies hearing loss Card Denies chest pain, Denies claudication, Denies leg edema, Denies light headedness, Denies palpitations, Denies dyspnea, Denies dyspnea on exertion and Denies orthopnea Resp Denies cough, Denies excessive phlegm production, Denies dyspnea, Denies dyspnea on exertion, Denies snoring and Denies wheezing GI Denies abdominal pain, Denies hematochezia, Denies change in bowel habits, Denies nausea and Denies vomiting Denies urinary frequency and Denies dysuria Musc Denies arthralgias, Denies muscle weakness, Denies numbness and Denies other (frequent falls) Skin/Breast Denies nail changes and Denies rash Neuro Denies Abnormal speech present, Denies dizziness, Denies frequent falls, Denies loss of vision, Denies memory loss, Denies numbness and Denies weakness Psych Denies depression and Denies memory loss Endo Denies fatigue and Denies palpitations Arik/Lymph Reports easy bruising and Reports other (anemia) Aller/Immun Denies wheezing Physical Exam Vital Signs: Last Vital Signs Pulse 93 04/19/23 13:19 BP 126/70 04/19/23 13:19 BMI result Body Mass Index 28.6 Const General: cooperative, comfortable, no acute distress, alert, awake, Physically active and well groomed Nutritional Appearance: overweight Orientation/consciousness: patient oriented x3 Limitations: no limitations HEENT Head: Yes normocephalic and Yes atraumatic Neck Neck: Yes trachea midline, Yes supple and Yes no JVD Resp Effort & Inspection: normal respiratory effort Auscultation: clear to auscultation bilaterally and diminished lung sounds Cardio Jugular venous distension: no JVD Palpation: normal PMI Rhythm: abnormal rhythm irregularly irregular Heart sounds: S1 normal heart sound present, S2 normal heart sound present, no click, no gallops and Murmur heart sound present systolic early GI Auscultation: normal bowel sounds Skin General skin exam: no rashes or lesions noted Neuro General: patient oriented x3 and no focal motor deficits Speech: No Abnormal speech present Extrem General: Yes no clubbing, cyanosis or edema Office Procedures EKG Details: EKG shows atrial flutter with variable conduction with QS pattern in lead V1 V2 [id number], Complete Assessment & Plan Assessment & Plan (1) Atrial fibrillation: Code(s): I48.91 - Unspecified atrial fibrillation Plan: New onset atrial flutter/fibrillation this elderly woman which is highly symptomatic most likely due to her underlying diastolic dysfunction making her dependent on the atrial kick. We discussed about pathophysiology with atrial fibrillation, the cause in details. Most likely cause by advanced age in hypertensive changes with left atrial enlargement. Importance of management of atrial fibrillation was discussed in details. CHADSVASc score of at least 4. Strongly recommend oral anticoagulation therapy. Will discontinue aspirin therapy and start on Eliquis 5 mg b.i.d.. Risks and benefits were discussed in details. Her rate is borderline controlled with therefore increase atenolol to 50 mg b.i.d.. Given significant symptoms although I think that she would benefit from rhythm control approach. Given at least more than 2-3 days of onset would like to anticoagulated for 4 weeks prior to doing synchronized cardioversion. The need for synchronized cardioversion and the benefits, risks and alternatives were discussed with her. She understands and is agreeable. Will schedule in 4 weeks time. Meanwhile given her symptoms of shortness of breath and fatigue with atrial fibrillation would like to rule out myocardial ischemia as well as this will help with management of atrial fibrillation the future if she requires antiarrhythmic drug therapy. Blood pressure is currently well optimized. Continue current therapy. Advised to call me with sudden worsening in the symptoms. Will follow up in the clinic in 6 weeks time, sooner p.r.n.. Thank you for allowing me to partake in the care Orders: Orders CA lexiscan stress w pradeep Today I48.91 - Unspecified atrial fibrillation, R06.02 - Shortness of breath Medications: New apixaban (Eliquis) 5 mg PO BID 60 tabs 3RF Changed From atenolol 25 mg PO DAILY 90 tabs 1RF To atenolol 25 mg PO BID 90 tabs 1RF Coding Level of Care Code New Pt Level 4 (48053) Diagnoses Atrial fibrillation I48.91 CPT Codes EKG - CPT: 54568-[id number], Complete ([id number])
== END 2023-04-19 13:55 | disposition home or self-care (01) ==
PROVIDERS: PCP Nurse Practitioner Family; Visit Provider Internal Medicine Cardiovascular Disease
DX: I48.91 Unspecified atrial fibrillation (principal)
CPT/HCPCS: 93010; 99204

== ENCOUNTER → 2023-04-19 12:41 | Outpatient (BNVA) | payer MEDICARE, SELFPAY | PROVIDERS: PCP Nurse Practitioner Family; Visit Provider Internal Medicine Cardiovascular Disease | DX: I48.91 Unspecified atrial fibrillation (principal) | CPT/HCPCS: 93005; 99202 ==

== ENCOUNTER → 2023-05-01 08:47 | Outpatient (REF) | payer MEDICARE, SELFPAY ==
--- NOTE | ~2023-05-01 | NM_ITS ---
Myocardial perfusion study Indication: Atrial fibrillation to evaluate for myocardial ischemia Technique: The patient was brought in for a Lexiscan perfusion study on 05/01/2023. Patient performed low-level exercise and was injected 0.4 mg of Lexiscan intravenously. Within a minute of injection, 25 mCi of sestamibi was given intravenously. Images were obtained using the SPECT gamma camera interlaced with the gating device. Images were obtained in supine position. Resting perfusion study was performed on 05/02/2023. Patient was administered 25 mCi of sestamibi intravenously at rest. Images were then obtained in supine position. Images obtained with and without CT attenuation. Total DLP 105 mGy-cm. Images were processed with the software and compared side to side in short axis, horizontal long axis and vertical long axis views. Findings: Images there appears to be misalignment between CT and nuclear imaging The stress perfusion study showed non attenuated images show mildly reduced uptake in the lateral wall of the LV myocardium. Remainder of the LV myocardium is normally perfused. Attenuation corrected images show normal uptake of radiotracer in all segments of LV myocardium. The gated study shows normal LV systolic function with visually estimated LVEF of greater than 60%. LV cavity is normal size. The gated study shows normal systolic wall thickening and contraction of segments. Resting study shows no change in perfusion pattern compared to stress perfusion study. Gating at rest reveals normal systolic wall motion with visually estimated ejection fraction at greater than 60%. The findings are consistent with likely normal myocardial perfusion. NM/NM pradeep perf SPECT rest & str Impression: 1. Myocardial perfusion imaging study shows likely normal myocardial perfusion 2. Gated LVEF is greater than 60% 3. Transient ischemic dilatation not present EKG is nondiagnostic for ischemia
--- NOTE | 2023-05-01 08:53 | CA_ITS ---
Acquisition Time: 2023-05-01 09:03:17 Total Exercise Time: 00:02:00 Test Indications: AFIB NEW ONSET Medications: SEE MED SHEET Protocol: LEXISCAN Max HR: 104 BPM 78% of Pred: 132 BPM Max BP: 124/060 mmHG Max Work Load: 1.0 METS Pharmacological stress test with Lexiscan injection while sitting, without anginal symptoms, with isolated PVC and PAC, with normotensive response to injection, with nondiagnosiitic EKGs. Nuclear images pending. Test reviewed with Dr. Foster. Referred By: Galdino Fonseca Overread By: Birgit Carter
== END ==
LOC: HO.CARD 08:47
PROVIDERS: PCP Nurse Practitioner Family; Visit Provider Internal Medicine Cardiovascular Disease
DX: R06.02 Shortness of breath (principal); I48.91 Unspecified atrial fibrillation
CPT/HCPCS: 78452; 93017; A9500; J0280; J2785

== ENCOUNTER → 2023-05-01 08:53 | Outpatient (BNV) | payer MEDICARE, SELFPAY | PROVIDERS: PCP Nurse Practitioner Family; Visit Provider Nurse Practitioner | DX: I48.91 Unspecified atrial fibrillation (principal) | CPT/HCPCS: 78452; 93016; 93018 ==

== ENCOUNTER 2023-05-10 10:05 | Outpatient (AMB) | payer MEDICARE, SELFPAY ==
--- NOTE | 2023-05-10 10:05 | A.OFFPC_ITS ---
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: No Accompanied by: Self / Same As Patient Allergies codeine [Codeine] Allergy (Mild, Verified 05/10/23 10:07) VOMITING sulfamethoxazole [From Bactrim] Allergy (Mild, Verified 05/10/23 10:07) Headache trimethoprim [From Bactrim] Allergy (Mild, Verified 05/10/23 10:07) Headache atorvastatin [Lipitor] Adverse Reaction (Unknown, Verified 05/10/23 10:07) Myalgia Codeine Sulfate Adverse Reaction (Unknown, Uncoded 04/18/23 14:37) Vomiting Tobacco use date assessed: 05/10/23 Fall risk assessment: No Falls in past year Last assessed Fall Risk: 05/10/23 Dental Screening Dental Screen Date: 05/10/23 Did you have a dental visit in the last 12 months?: Yes Did you have a dental problem in the last 6 months where you did not have access to dental care?: No Was dental information given to patient?: Patient has dentist HPI follow up htn HPI Details HTN: Blood pressure is managed with atenolol 25mg bid and hydrochlorothiazide 12.5mg. Denies chest pain, shortness of breath, headache, dizziness, and blurred vision. Pt has new onset afib (recently found, see previous walk in notes/cardiology notes). She denies any current symptoms. Pt is following up with cardiology. She is not currently in afib. [facility] Medical History Atrial fibrillation Nail fungus Non-toxic multinodular goiter Surgical History Hx of blepharoplasty Hx of cholecystectomy Hx of appendectomy Hx of hysterectomy History of left hip replacement Hx of total knee replacement H/O total mastectomy of left breast Family History Other No family history of cancer Social History Household Members: None Housing: House Are you a primary multi care technician to a significant other at home: No Do you presently have visiting nurse or other home services: No Alcohol intake: current Patient Tobacco Use Status: Never used Tobacco e-Cigarette/Vaping Use: Never Used Second Hand Smoke Exposure: No service: No Current occupational status: retired Cognitive needs: No Hearing needs: No Vision needs: No Questionnaire PHQ-9 Over the last 2 weeks, how often have you been bothered by any of the following problems? 1. Little interest or pleasure in doing things: not at all 2. Feeling down, depressed, or hopeless: not at all 3. Trouble falling or staying asleep, or sleeping too much: not at all 4. Feeling tired or having little energy: not at all 5. Poor appetite or overeating: not at all 6. Feeling bad about yourself - or that you are a failure or have let yourself or your family down: not at all 7. Trouble concentrating on things, such as reading the newspaper or watching television: not at all 8. Moving or speaking so slowly that other people could have noticed. Or the opposite - being so fidgety or restless that you have been moving around a lot more than usual: not at all 9. Thoughts that you would be better off or of hurting yourself in some way: not at all Total score: 0 Depression Screening Interpretation: Negative Depression Screening Done: Yes 87519 - PHQ-9 Billing: Yes Source: Developed by Drs. Holden Kinsey, Tammie Rodríguez, Luis Armando Quezada and colleagues, with an educational tobias from [employer]. Thrive Questionnaire Date Thrive assessed: 05/10/23 I am a: Patient What is your living situation today?: I have a steady place to live Within the past 12 months, did the food you bought not last and you didn't have the money to get more?: Never true Within the past 12 months, did you worry whether your food would run out before you got money to buy more?: Never true Do you have trouble paying for medicines?: No Do you have trouble getting transportation to medical appointments?: No Do you have trouble paying your heating and electricity bill?: No Do you have trouble taking care of your child, family member or friend?: No Do you have trouble with day-to-day activities such as bathing, preparing meals, shopping, managing finances, etc.?: No Are you currently unemployed and looking for a job?: No Are you interested in more education?: No Please select the resources that you would like help with: None Currently or been in a relationship where the following occur: no concerns reported AUDIT C Alcohol Use Questionnaire (AUDIT-C) 1. How often do you have a drink containing alcohol?: Monthly or less 2. How many drinks containing alcohol do you have on a typical day when you are drinking?: 1 or 2 3. How often do you have six or more drinks on one occasion?: Never Total Score: 1 Score Reviewed/Action Taken: Yes LEXI-7 AMB Questionnaire LEXI-7 Date LEXI - 7 assessed: 05/10/23 Feeling nervous, anxious, or on edge: 0 = Not at all Not being able to stop or control worryin = Not at all Worrying too much about different things: 0 = Not at all Trouble relaxin = Not at all Being so restless that it is hard to sit still: 0 = Not at all Becoming easily annoyed or irritable: 0 = Not at all Feeling afraid as if something awful might happen: 0 = Not at all Total LEXI-7 score (0-4 normal; 5-9 mild; 10-14 moderate; 15-21 severe): 0 Source: Developed by Drs. Holden Kinsey, Tammie Rodríguez, Luis Armando Quezada and colleagues, with an educational tobias from [employer]. LEXI-7 Assessment Billing LEXI-7 Assessment Tool: LEXI-7 Assessment 59137 Review of Systems Const Reports as per HPI Physical exam (Primary Care) Vital Signs: Last Vital Signs Pulse 74 05/10/23 10:07 BP 130/82 05/10/23 10:35 Pulse Ox 97 05/10/23 10:07 Oxygen Delivery Method Room Air 05/10/23 10:07 BMI result Body Mass Index 27.4 Tobacco/Smoking Status: Tobacco use Status Tobacco use date assessed 05/10/23 05/10/23 10:08 Patient Tobacco Use Status Never used Tobacco 05/10/23 10:08 e-Cigarette/Vaping Use Never Used 05/10/23 10:08 PHQ-9: PHQ-9 Score PHQ-9: Total score 0 05/10/23 10:26 Depression Screening Interpretation: Negative Thrive Assessment: Date of Thrive Assessment Date Thrive assessed 05/10/23 05/10/23 10:13 Currently or been in a relationship where the following occur: no concerns reported Const General: cooperative Orientation/consciousness: patient oriented x3 Resp Effort & Inspection: normal respiratory effort Auscultation: clear to auscultation bilaterally Cardio Rate: regular rate Rhythm: regular rhythm Heart sounds: S1 normal heart sound present and S2 normal heart sound present Neuro General: patient oriented x3 Psych Appearance: grossly normal Mental Status: mental status grossly normal Speech and movement: Normal speech and movement present Affect: normal affect Attitude: cooperative Thought process: Normal thought process present Thought content: Normal thought content present Insight: Good insight present (Psych) Judgement: Good judgement present (Psych) Assessment and Plan Assessment & Plan (1) Atrial fibrillation: Code(s): I48.91 - Unspecified atrial fibrillation (2) HTN (hypertension): Code(s): I10 - Essential (primary) hypertension Plan The patient agreed to the use of a district medical examiner for this encounter. Scribed for JALEEL Chi by Mis Ghotra district medical examiner, on 05/10/2023 at 10:25 EST. Coding Level of Care Code Est Pt Level 3 (58419) Diagnoses Atrial fibrillation I48.91 HTN (hypertension) I10 Additional Codes LEXI-7 Assessment Billing - LEXI-7 Assessment Tool: LEXI-7 Assessment 47997 ([id number])
[2023-05-10 10:07] VITALS: BP 142/78; PULSE 74; O2SAT 97; BMI 27.4
[2023-05-10 10:35] VITALS: BP 130/82
== END 2023-05-10 11:51 | disposition home or self-care (01) ==
PROVIDERS: PCP Nurse Practitioner Family; Visit Provider Nurse Practitioner Family
DX: I48.91 Unspecified atrial fibrillation (principal); I10 Essential (primary) hypertension
CPT/HCPCS: 99213

== ENCOUNTER → 2023-05-17 10:29 | Day surgery (SDC) | payer MEDICARE, SELFPAY ==
[2023-05-15 15:27] VITALS: BMI 27.4
--- NOTE | 2023-05-16 08:14 | HO.ANESPROP2 ---
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) HTN (hypertension) (Acute) Dysuria (Acute) Atrial fibrillation (Acute) Non-toxic multinodular goiter (Acute) Past Medical History Medical History (Updated 05/15/23 @ 15:30 by Milagros Delgadillo RN) Elevated cholesterol HTN (hypertension) Atrial fibrillation Nail fungus Non-toxic multinodular goiter Family History Family History Other No family history of cancer Surgical History Surgical History (Reviewed 05/10/23 @ 12:[address] [facility]ICK [facility]) Hx of blepharoplasty Hx of cholecystectomy Hx of appendectomy Hx of hysterectomy History of left hip replacement Hx of total knee replacement H/O total mastectomy of left breast Social History Social History Household Members: None Housing: House Are you a primary career services representative to a significant other at home: No Do you presently have visiting nurse or other home services: No Alcohol intake: current Patient Tobacco Use Status: Never used Tobacco e-Cigarette/Vaping Use: Never Used Second Hand Smoke Exposure: No service: No Current occupational status: retired Cognitive needs: No Hearing needs: No Vision needs: No Meds Allergies Allergy/AdvReac Type Severity Reaction Status Date / Time codeine [Codeine] Allergy Mild VOMITING Verified 05/10/23 10:07 sulfamethoxazole Allergy Mild Headache Verified 05/10/23 10:07 [From Bactrim] trimethoprim [From Bactrim] Allergy Mild Headache Verified 05/10/23 10:07 Home Medications Medication Instructions Recorded Confirmed Last Taken Type ascorbate calcium (vitamin C) 500 500 mg PO DAILY 09/07/20 05/15/23 Unknown History mg tablet aujgmrmu-ijez-yuoz 8 mg-folic 400 1 tab PO DAILY 09/07/20 05/15/23 Unknown History mcg-K 50 mcg-lutein 300 mcg tablet (Centrum Silver Women) cholecalciferol (vitamin D3) 25 25 mcg PO DAILY 01/25/21 05/15/23 Unknown History mcg (1,000 unit) capsule atenolol 25 mg tablet 50 mg PO BID 05/15/23 05/15/23 Unknown History Exam Height,Weight and Vital Signs: Height 5 ft 2 in Weight 68.039 kg Narrative Narrative: ECHO 12/2022 Conclusions: - 1. Normal LV systolic function with pseudonormal filling pattern 2. Mildly dilated left atrium 3. Normal cardiac valvular Doppler 4. Moderately elevated right ventricular systolic pressure 5. No gross pericardial effusion EKG 04/2023 atrial flutter with variable conduction with QS pattern in lead V1 V2 NM pradeep perf SPECT rest & str 04/2023 Impression: 1. Myocardial perfusion imaging study shows likely normal myocardial perfusion 2. Gated LVEF is greater than 60% 3. Transient ischemic dilatation not present EKG is nondiagnostic for ischemia Assessment and Plan Assessment Anesthesia Assessment: Chart Reviewed
--- NOTE | 2023-05-17 10:45 | ECG_ITS ---
Test Reason : rhythm change Blood Pressure : / mmHG Vent. Rate : 063 BPM Atrial Rate : 063 BPM P-R Int : 166 ms QRS Dur : 102 ms QT Int : 448 ms P-R-T Axes : 072 002 -05 degrees QTc Int : 458 ms Normal sinus rhythm Minimal voltage criteria for LVH, may be normal variant ( Christopher product ) Borderline ECG When compared with ECG of 31-MAY-2016 11:09, No significant change was found Referred By: Galdino Fonseca Electronically Signed By:ALE IRENE
[2023-05-17 10:53] VITALS: BP 152/72; PULSE 65; RESP 18; TEMP 36.6; O2SAT 100
--- NOTE | 2023-05-17 11:04 | PC.NURSE ---
pt cancelled ekg shows nsr per dr magaña
== END ==
PROVIDERS: PCP Nurse Practitioner Family; Visit Provider Internal Medicine Cardiovascular Disease
DX: I48.19 Other persistent atrial fibrillation (principal); Z53.8 Procedure and treatment not carried out for other reasons
CPT/HCPCS: 93005

== ENCOUNTER → 2023-05-17 10:45 | Outpatient (BNV) | payer MEDICARE, SELFPAY | PROVIDERS: PCP Nurse Practitioner Family; Visit Provider Internal Medicine | DX: I48.19 Other persistent atrial fibrillation (principal) | CPT/HCPCS: 93010 ==

== ENCOUNTER → 2023-05-22 13:13 | Outpatient (REF) | payer MEDICARE, SELFPAY ==
--- NOTE | 2023-05-22 13:15 | HM_ITS ---
Conclusion: 1. Patient was monitored for total period of 2 days and 19 hours 2. Baseline was normal sinus rhythm with average heart rate of 64 beats per minute 3. No significant pauses noted 4. Frequent PACs noted with total burden of 1.6% 5. Occasional PVCs noted with total burden of 0.5% 6. Patient reported 1 event of penetrating chest pain that correlated with isolated PAC MTDD
== END ==
LOC: HO.CARD 13:13
PROVIDERS: PCP Nurse Practitioner Family; Visit Provider Internal Medicine Cardiovascular Disease
DX: I48.91 Unspecified atrial fibrillation (principal)
CPT/HCPCS: 93242

== ENCOUNTER → 2023-05-22 13:15 | Outpatient (BNV) | payer MEDICARE, SELFPAY | PROVIDERS: PCP Nurse Practitioner Family; Visit Provider Internal Medicine Cardiovascular Disease | DX: I49.1 Atrial premature depolarization (principal) | CPT/HCPCS: 93244 ==

== ENCOUNTER 2023-06-01 14:11 | Outpatient (AMB) | payer MEDICARE, SELFPAY ==
[2023-06-01 14:13] VITALS: BP 134/80; PULSE 70; BMI 27.8
--- NOTE | 2023-06-01 14:13 | MHC.OFFVIS ---
Intake Vital Signs 06/01/23 14:13 Height 5 ft 2 in Weight 152 lb 1.903 oz BMI 27.8 BP 134/80 Blood Pressure Location Lt brachial Position Sitting Pulse 70 Intake Visit Reasons: follow-up dx afib with ekg Intake Note: Follow-up dx afib with ekg c/o swelling on tops of feet Clinical Data Research Required: No Allergies codeine [Codeine] Allergy (Mild, Verified 05/10/23 10:07) VOMITING sulfamethoxazole [From Bactrim] Allergy (Mild, Verified 05/10/23 10:07) Headache trimethoprim [From Bactrim] Allergy (Mild, Verified 05/10/23 10:07) Headache Medication List - Last Reconciled 06/01/23 by Galdino Fonseca MD apixaban (Eliquis) 5 mg PO BID ascorbate calcium (vitamin C) 500 mg PO DAILY atenolol 50 mg PO BID atorvastatin 20 mg PO DAILY cholecalciferol (vitamin D3) 25 mcg PO DAILY gabapentin 300 mg PO DAILY hydrochlorothiazide 12.5 mg PO DAILY ujunpvja-hbq-raoi-FA-vit K-lut 8 mg iron-400 mcg-50 mcg (Centrum Silver Women) 1 tab PO DAILY HPI HPI Comments History of Present Illness Details Velia comes for follow-up. She has had no recurrent atrial fibrillation. No lack of energy. However she has notice increased leg swelling since then mostly in the lower extremity. She also notice some shortness of breath when she lays in the bed. She denies any worsening exertional shortness of breath. No PND. No exertional chest pain. Recent myocardial perfusion imaging was within normal limits. She also complains of cyanosis of her hands especially since the AFib started. [facility], [facility] Medical History (Updated 06/01/23 @ 14:43 by Galdino Fonseca MD) Paroxysmal atrial fibrillation Atrial fibrillation Elevated cholesterol HTN (hypertension) Nail fungus Non-toxic multinodular goiter Surgical History Hx of blepharoplasty Hx of cholecystectomy Hx of appendectomy Hx of hysterectomy History of left hip replacement Hx of total knee replacement H/O total mastectomy of left breast Family History Other No family history of cancer Social History Household Members: None Housing: House Are you a primary customer care coordinator to a significant other at home: No Do you presently have visiting nurse or other home services: No Alcohol intake: current Alcohol intake frequency: does not drink Patient Tobacco Use Status: Never used Tobacco e-Cigarette/Vaping Use: Never Used Second Hand Smoke Exposure: No service: No Current occupational status: retired Cognitive needs: No Hearing needs: No Vision needs: No Review of Systems Const Denies chills, Denies fatigue, Denies fever(s), Denies frequent falls, Denies weakness, Denies weight gain and Denies weight loss ENT Denies dizziness Card Denies chest pain, Denies leg edema, Denies lightheadedness, Denies palpitations, Denies dyspnea, Denies dyspnea on exertion, Denies orthopnea and Denies other (loss of consciousness) Resp Denies cough, Denies dyspnea and Denies dyspnea on exertion GI Denies hematochezia and Denies change in stool character Musc Denies abnormal gait, Denies muscle weakness, Denies numbness, Denies radiating pain into limb and Denies tingling Neuro Denies Abnormal speech present, Denies abnormal gait, Denies dizziness, Denies frequent falls, Denies numbness, Denies tingling and Denies weakness Endo Denies fatigue and Denies palpitations Physical Exam Vital Signs: Last Vital Signs Pulse 70 06/01/23 14:13 BP 134/80 06/01/23 14:13 BMI result Body Mass Index 27.8 Const General: cooperative, comfortable, no acute distress, alert, awake, Physically active and well groomed Nutritional Appearance: overweight Orientation/consciousness: patient oriented x3 Limitations: no limitations HEENT Head: Yes normocephalic and Yes atraumatic Neck Neck: Yes trachea midline, Yes supple and Yes no JVD Resp Effort & Inspection: normal respiratory effort Auscultation: clear to auscultation bilaterally and diminished lung sounds Cardio Jugular venous distension: no JVD Palpation: normal PMI Rhythm: abnormal rhythm irregularly irregular Heart sounds: S1 normal heart sound present, S2 normal heart sound present, no click, no gallops and Murmur heart sound present systolic early GI Auscultation: normal bowel sounds Skin General skin exam: no rashes or lesions noted Neuro General: patient oriented x3 and no focal motor deficits Speech: No Abnormal speech present Extrem General: Yes no clubbing, cyanosis or edema Office Procedures EKG Details: EKG shows normal sinus rhythm with normal EKG [id number], Complete Assessment & Plan Assessment & Plan (1) Paroxysmal atrial fibrillation: Code(s): I48.0 - Paroxysmal atrial fibrillation Plan: Paroxysmal atrial fibrillation this elderly woman, doing well from cardiac perspective at this point time maintain rhythm. Will continue pursue rhythm control approach. Continue atenolol therapy. Will avoid antiarrhythmic drug therapy at this point time. She does have structural heart issues that makes her prone to get recurrent atrial fibrillation. This was discussed with her. Continue full oral anticoagulation, currently on Eliquis 5 mg b.i.d.. Continue aggressive control blood pressure which appears to be well optimized. (2) Leg edema: Code(s): R60.0 - Localized edema Plan: Patient developed leg edema since her diagnosis of atrial fibrillation. This is most suggestive of early congestive heart failure predominantly right heart failure given her pulmonary hypertension and diastolic dysfunction. Have advised her to take Lasix 20 mg for the next 2 days and report to me symptom improvement or not. May require ongoing Lasix therapy. If her symptoms improve completely in 3-4 days, after that advised her to take Lasix on p.r.n. basis. Continue rhythm control approach. Avoidance of salt loading was discussed. Will follow up in the clinic in 6 months time, sooner p.r.n.. Thank you for allowing me to partake in her care Medications: New furosemide (Lasix) 20 mg PO DAILY 30 tabs 1RF Coding Level of Care Code Est Pt Level 4 (10657) Diagnoses Paroxysmal atrial fibrillation I48.0 Leg edema R60.0 CPT Codes EKG - CPT: 20989-[id number], Complete ([id number])
== END 2023-06-01 14:44 | disposition home or self-care (01) ==
PROVIDERS: PCP Nurse Practitioner Family; Visit Provider Internal Medicine Cardiovascular Disease
DX: I48.0 Paroxysmal atrial fibrillation (principal); R60.0 Localized edema
CPT/HCPCS: 93010; 99214

== ENCOUNTER → 2023-06-01 14:11 | Outpatient (BNVA) | payer MEDICARE, SELFPAY | PROVIDERS: PCP Nurse Practitioner Family; Visit Provider Internal Medicine Cardiovascular Disease | DX: I48.0 Paroxysmal atrial fibrillation (principal); R60.0 Localized edema | CPT/HCPCS: 93005; 99212 ==

== ENCOUNTER 2023-06-15 10:18 | Outpatient (AMB) | payer MEDICARE, SELFPAY ==
--- NOTE | 2023-06-15 10:42 | AM.OFFVISMDC ---
Intake Vital Signs 06/15/23 10:45 Height 5 ft 2 in Weight 159 lb BMI 29.1 BP 122/64 Blood Pressure Location Rt brachial Position Sitting Pulse 64 Pulse Source Pulse Oximeter Pulse Oximetry (%) 98 Oxygen Delivery Method Room Air Intake Visit Reasons: SWV G0439 Allergies codeine [Codeine] Allergy (Mild, Verified 06/15/23 10:45) VOMITING sulfamethoxazole [From Bactrim] Allergy (Mild, Verified 06/15/23 10:45) Headache trimethoprim [From Bactrim] Allergy (Mild, Verified 06/15/23 10:45) Headache Medication List - Last Reconciled 06/15/23 by MINNIE Stewart-SHEELA apixaban (Eliquis) 5 mg PO BID ascorbate calcium (vitamin C) 1,000 mg PO DAILY atenolol 50 mg (2 x 25 mg) PO BID atorvastatin 20 mg PO DAILY cholecalciferol (vitamin D3) 25 mcg PO DAILY furosemide (Lasix) 20 mg PO DAILY gabapentin 300 mg PO DAILY hydrochlorothiazide 12.5 mg PO DAILY ulxmoyjc-ysn-ghuy-FA-vit K-lut 8 mg iron-400 mcg-50 mcg (Centrum Silver Women) 1 tab PO DAILY Do you need a note to return to daycare/school/sports/work: No HPI SWV G0439 HPI Details Pt is here for an SWV. Denies fever, chills, and dizziness. [place] of care in scan pile. PPP will be scanned in chart and copy will be given to pt. [facility] Medical History Paroxysmal atrial fibrillation Atrial fibrillation Elevated cholesterol HTN (hypertension) Nail fungus Non-toxic multinodular goiter Surgical History Hx of blepharoplasty Hx of cholecystectomy Hx of appendectomy Hx of hysterectomy History of left hip replacement Hx of total knee replacement H/O total mastectomy of left breast Family History Other No family history of cancer Social History Household Members: None Housing: House Are you a primary medicare specialist to a significant other at home: No Do you presently have visiting nurse or other home services: No Alcohol intake: current Alcohol intake frequency: does not drink Patient Tobacco Use Status: Never used Tobacco e-Cigarette/Vaping Use: Never Used Second Hand Smoke Exposure: No service: No Current occupational status: retired Cognitive needs: No Hearing needs: No Vision needs: No Questionnaire Medicare Wellness Checkup What is your age?: 79 or older What gender do you identify with?: female During the past 4 weeks, how much have you been bothered by emotional problems such as feeling anxious, depressed, irritable, sad or downhearted, and blue?: not at all During the past 4 weeks, has your physical & emotional health limited your social activities with family, friends, neighbors, or groups?: not at all During the past 4 weeks, how much bodily pain have you generally had?: no pain During the past 4 weeks, was someone available to help you if you needed & wanted help?: yes, as much as I wanted During the past 4 weeks, what was the hardest physical activity you could do for at least 2 minutes?: moderate Can you get to places out of walking distance without help? (For eg., can you travel alone on buses, taxis or drive your car?): Yes Can you go shopping for groceries or clothes without someone's help?: Yes Can you prepare your own meals?: Yes Can you do your housework without help?: Yes Because of any health problems, do you need the help of another person with your personal care needs such as eating, bathing, dressing or getting around the house?: No Can you handle your own money without help?: Yes During the past 4 weeks, how would you rate your health in general?: good During the past 4 weeks how have things been going for you?: pretty well Are you having difficulties driving your car?: not applicable, I don't use a car Do you always fasten your seat belt when you are in a car?: yes, usually During past 4 weeks, have you been bothered by the following: never: Falling or dizzy when standing up, Sexual problems?, Trouble eating well?, Teeth or denture problems?, Problems using the telephone? and Tiredness or fatigue? Have you fallen 2 or more times in the past year?: No Are you afraid of falling?: No Are you a smoker?: no During the past 4 weeks, how many drinks of wine, beer, or other alcoholic beverages did you have?: 1 drink or less per week Do you exercise for about 20 minutes 3 or more times a week?: yes, some of the time Have you been given information to help with the following?: no: Hazards in your house that might hurt you? and no: Keeping track of your medications? How often do you have trouble taking medicines the way you have been told to take them?: I always take medicine as prescribed How confident are you that you can control & manage most of your health problems?: very confident What is your race?: White Mini Mental State Exam (MMSE) Orientation What is the (year) (season) (date) (day) (month)?: year Where are we (state) (county) (town or city) (hospital) (floor)?: state Registration Name of 3 unrelated objects clearly and slowly, then ask patient to repeat all 3 of them. (1st repeat determines score. Make sure they can repeat all three): object 1, object 2 and object 3 Attention & Calculation (CHOOSE ONE) Spell WORLD backwards (DLROW): 5 letters Recall Ask patient to repeat the 3 items from question #3.: object 1, object 2 and object 3 Language Show patient a wristwatch & ask what it is. Repeat for pencil.: watch and pencil Ask the patient to repeat the phrase 'No ifs, ands, or buts' after you.: correct Ask the patient to 'take a piece of paper with their right hand' 'fold paper in half' 'place paper on floor': take paper in right hand, fold paper in half and place paper on floor Print the sentence 'CLOSE YOUR EYES' on a piece. If patient actually closes eyes then score.: followed written direction Give patient a blank piece of paper & ask to write a sentence. Score if it contains a noun & verb.: sentence contains subject and verb Ask patient to copy figure of intersecting pentagons exactly. Score if all 10 angles & 2 intersects are included.: all 10 angles present & 2 are intersected Score Score: 22 Activity of Daily Living Bathing - sponge bath, tub bath or shower: receives no assistance (gets in/out by self, if usual bathing means Dressing - getting clothes from closets & drawers, including inner/outer garments & fasteners.: gets clothes & gets completely dressed without help Toileting - going to the 'toilet room' for urine/bowel elimination & cleaning self/arranging clothes: goes to toilet room, cleans self, arranges clothes without help Transfer: moves in & out of bed and chair without help (may use support object) Continence: controls urination/bowel movements completely by self Feeding: feeds self without help Total Score: 0 Information obtained from: patient Using telephone: independent Traveling: needs assistance Shopping: independent Preparing meals: independent Housework: independent Taking medicine: independent Managing money: independent PHQ-9 Over the last 2 weeks, how often have you been bothered by any of the following problems? 44694 - PHQ-9 Billing: Patient declined-do not bill Source: Developed by Drs. Holden Kinsey, Tammie Rodríguez, Luis Armando Quezada and colleagues, with an educational tobias from [employer]. Review of Systems Const Reports as per HPI Physical Exam Vital Signs: Last Vital Signs Pulse 64 06/15/23 10:45 BP 122/64 06/15/23 10:45 Pulse Ox 98 06/15/23 10:45 Oxygen Delivery Method Room Air 06/15/23 10:45 BMI result Body Mass Index 29.1 Const General: cooperative Orientation/consciousness: patient oriented x3 Neuro Other: - romberg, can tandem walk, can walk and turn, can rise from sitting to standing, passed whisper test General: patient oriented x3 Psych Appearance: grossly normal Mental Status: mental status grossly normal Speech and movement: Normal speech and movement present Affect: normal affect Attitude: cooperative Thought process: Normal thought process present Thought content: Normal thought content present Insight: Good insight present (Psych) Judgement: Good judgement present (Psych) Assessment & Plan Assessment & Plan (1) Encounter for annual wellness visit (AWV) in Medicare patient: Code(s): Z00.00 - Encounter for general adult medical examination without abnormal findings Plan The patient agreed to the use of a medical professionals for this encounter. Scribed for JALEEL Chi by jayla Martínez scribe, on 06/15/2023 at 11:10 EST. Orders: Orders XR DEXA axial skeleton 5 Months Z78.0 - Asymptomatic menopausal state Coding Level of Care Code Medicare Subsequent (G0439) Diagnoses Encounter for annual wellness visit (AWV) in Medicare patient Z00.00 CPT Codes Advance Care Planning - Time spent: 1-15 minutes, on File ([id number]) Advance Care Planning Forms completed: Health Care Proxy (on file), MOLST (on file) and Living will (pt reports this was already done) Time spent: 1-15 minutes, on File
[2023-06-15 10:45] VITALS: BP 122/64; PULSE 64; O2SAT 98; BMI 29.1
== END 2023-06-15 11:22 | disposition home or self-care (01) ==
PROVIDERS: PCP Nurse Practitioner Family; Visit Provider Nurse Practitioner Family
DX: Z00.00 Encounter for general adult medical examination without abnormal findings (principal)
CPT/HCPCS: 1123F; G0439

== ENCOUNTER 2023-09-19 09:40 | Outpatient (AMB) | payer MEDICARE, SELFPAY ==
[2023-09-19 09:43] VITALS: BP 132/64; PULSE 68; BMI 29.0
--- NOTE | 2023-09-19 09:43 | A.OFFVIS_ITS ---
Intake Vital Signs 09/19/23 09:43 Height 5 ft 2 in Weight 158 lb 11.725 oz BMI 29.0 BP 132/64 Blood Pressure Location Lt brachial Position Sitting Pulse 68 Pulse Source Pulse Oximeter Intake Visit Reasons: Thyroid nodule-confirmed Intake Note: Patient presents today for Thyroid Nodule follow up. Operation Research Analyst Required: No Accompanied by: Self / Same As Patient Allergies codeine [Codeine] Allergy (Mild, Verified 09/19/23 09:48) VOMITING sulfamethoxazole [From Bactrim] Allergy (Mild, Verified 09/19/23 09:48) Headache trimethoprim [From Bactrim] Allergy (Mild, Verified 09/19/23 09:48) Headache HPI HPI Comments History of Present Illness Details 88-year-old female, her for follow-up vi sit, for multinodular goiter management . Patient is feeling well she has no complaints. She had fine-needle aspiration performed on 11/01/2018. She had no complications with fine-needle aspiration. She has a large right heterogeneous lobe replaced by a large complex nodule with cystic parts and solid parts. She had fine needle aspiration of cystic part with 7.5 mL of serosanguineous fluid aspirated. After that she had fine needle aspiration biopsy consistent with benign biopsy [place] category 2, cellularity was limited but follicular cells were normal. She has PMH of a Non toxic multinodular goiter, she had significnatly large right lobe with normal or small left lobe and isthmus. She had a Non diagnostic FNA of right side lobe in 02/23/10. She denies cold or heat intolerance, weigth loss or gain, diarrhea, constipation, imsomnia, fatigue, dry skin, she Denies dysphagia, dyspnea, dysphonia, tremors, palpitations, irritability, anxiety. US thyroid 11/14/2019 Right Thyroid Lobe: 7.1 x 3.9 x 5.1 cm, volume 73.2 mL. Previously 7.2 x 4.1 x 3.4 cm, volume 52.5 mL. Parenchyma: The gland echotexture is heterogeneous. Thyroid vascularity is increased. Left Thyroid Lobe: 3.2 x 1.5 x 1.2 cm, volume 3.2 mL. Previously 3.8 x 1.7 x 1.0 cm, volume 3.3 mL. Parenchyma: The gland echotexture is homogeneous. Thyroid vascularity is normal. Isthmus: 0.6 cm in maximum AP dimension. Previously 0.4 cm. RIGHT THYROID LOBE: An enlarged thyroid nodule unable to distinguish nodules from several cystic structures throughout the gland. ISTHMUS: No nodules. LEFT THYROID LOBE: No nodules. NODES: No lymphadenopathy is seen in the tissue surrounding the thyroid gland. Laboratory Tests 08/02/18 11/14/19 09/02/20 15:00 09:25 15:20 TSH 1.64 Free T4 0.97 TSH 3rd Generation 2.10 Thyroglobulin Anti body <1 Thyroid Peroxidase Ab <1 PFSH Medical History Paroxysmal atrial fibrillation Atrial fibrillation Elevated cholesterol HTN (hypertension) Nail fungus Non-toxic multinodular goiter Surgical History Hx of blepharoplasty Hx of cholecystectomy Hx of appendectomy Hx of hysterectomy History of left hip replacement Hx of total knee replacement H/O total mastectomy of left breast Family History Other No family history of cancer Social History Household Members: None Housing: House Are you a primary day care provider to a significant other at home: No Do you presently have visiting nurse or other home services: No Alcohol intake: current Alcohol intake frequency: does not drink Patient Tobacco Use Status: Never used Tobacco e-Cigarette/Vaping Use: Never Used Second Hand Smoke Exposure: No service: No Current occupational status: retired Cognitive needs: No Hearing needs: No Vision needs: No Physical Exam Vital Signs: Last Vital Signs Pulse 68 09/19/23 09:43 BP 132/64 09/19/23 09:43 BMI result Body Mass Index 29.0 Const Other: Thyroid gland is of normal size weighs 15 g. The right lobe is somewhat full to palpation. There are no discrete nodules palpated Assessment & Plan Assessment & Plan (1) Non-toxic multinodular goiter: Code(s): E04.2 - Nontoxic multinodular goiter Plan: This 87-year-old white female with history of longstanding multinodular goiter with dominant right thyroid nodule. She appears to be clinically and biochemically euthyroid. Plan is to nodule conservatively by having patient returned to her primary care provider who can order an ultrasound about 2 years time. . If there is any significant change in the size or characteristics of the nodules, patient returned back to endocrinology Coding Level of Care Code Est Pt Level 3 (70831) Diagnoses Non-toxic multinodular goiter E04.2
== END 2023-09-19 10:11 | disposition home or self-care (01) ==
PROVIDERS: PCP Nurse Practitioner Family; Visit Provider Internal Medicine Endocrinology, Diabetes & Metabolism
DX: E04.2 Nontoxic multinodular goiter (principal)
CPT/HCPCS: 99213

== ENCOUNTER → 2023-09-19 09:40 | Outpatient (BNVA) | payer MEDICARE, SELFPAY | PROVIDERS: Visit Provider Internal Medicine Endocrinology, Diabetes & Metabolism | DX: E04.2 Nontoxic multinodular goiter (principal) | CPT/HCPCS: 99212 ==

== ENCOUNTER 2023-10-06 07:55 | Outpatient (REF) | payer MEDICARE, SELFPAY ==
--- NOTE | ~2023-10-06 | XR_ITS ---
EXAMINATION: AP upright of both knees and lateral and patellofemoral views of the right knee CLINICAL INFORMATION: Primary osteoarthritis right knee COMPARISON: X-ray the right knee December 2016 x-ray the left knee July 2015. TECHNIQUE: 3 views of the right knee including AP upright of both knees. FINDINGS: Right knee: There is a total knee arthroplasty in place. The components are in the usual position and are unchanged. There is no periprosthetic fracture or surrounding abnormal lucency. There is no effusion. The surrounding soft tissues are normal. Left knee Limited upright AP: There is a total knee arthroplasty in place. The visualized components are in the usual position and are unchanged. There is no periprosthetic fracture or surrounding abnormal lucency. Cannot assess for effusion on AP projection The surrounding soft tissues are normal. XR/XR knee RT 3V IMPRESSION: RIGHT KNEE: Right total knee arthroplasty without change or complication by x-ray. LEFT KNEE Limited: Left total knee arthroplasty without change compared to prior.
== END 2023-10-06 07:56 | disposition home or self-care (01) ==
LOC: HO.HOSX 07:55
PROVIDERS: Visit Provider Physician Assistant
DX: T84.84XA Pain due to internal orthopedic prosthetic devices, implants and grafts, initial encounter (principal); Z96.651 Presence of right artificial knee joint
CPT/HCPCS: 73562; 99202

== ENCOUNTER 2023-10-06 11:05 | Outpatient (AMB) | payer MEDICARE, SELFPAY ==
--- NOTE | 2023-10-06 12:05 | A.OFFVIS_ITS ---
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 States she has knee replacement done [address] Thrasher. States she is having pain and discomfort. She is trying to stay active but knee pain limits her. Pain worse after prolong walking and standing. Pain is mostly in her lateral and medial aspect of knee. No recent falls. 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 She has history of right TKA in [address] Thrahser. She currently states she has pain and discomfort at the lateral and medial aspect of her knee which is aggravated after prolonged walking and standing. She has been trying to stay active but her knee pain limits her. She denies any recent falls. [facility] Medical History Paroxysmal atrial fibrillation Atrial fibrillation Elevated cholesterol HTN (hypertension) Nail fungus Non-toxic multinodular goiter Surgical History Hx of blepharoplasty Hx of cholecystectomy Hx of appendectomy Hx of hysterectomy History of left hip replacement Hx of total knee replacement H/O total mastectomy of left breast Family History Other No family history of cancer Social History (Updated 10/06/23 @ 12:08 by MARKEL Westfall) Household Members: None Housing: House Are you a primary personal care home administrator to a significant other at home: No Do you presently have visiting nurse or other home services: No Alcohol intake: current Alcohol intake frequency: does not drink Patient Tobacco Use Status: Never used Tobacco e-Cigarette/Vaping Use: Never Used Second Hand Smoke Exposure: No service: No Current occupational status: retired 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 Cognitive needs: No Hearing needs: No Vision needs: No Review of Systems Const All systems reviewed & are unremarkable except as noted in HPI and below Physical Exam Vital Signs: BMI result Body Mass Index 28.9 Const General: cooperative, healthy appearing, comfortable, no acute distress, well developed and alert Orientation/consciousness: patient oriented x3 HEENT Head: Yes normal to inspection, Yes normocephalic and Yes atraumatic Eyes General: appearance normal, both eyes and all related structures Resp Effort & Inspection: normal respiratory effort and able to speak in complete sen tences Cardio Rate: regular rate Peripheral pulses: Peripheral pulses 2+ throughout GI Palpation (GI): Soft to palpation Skin Lesions: no lesions Rashes: no rashes Neuro General: patient oriented x3 Extrem Other: Right knee: surgical scar present and well healed. No erythema or joint effusion. No pain along the knee joint. Mild discomfort along the pes bursa. Calf supple non tender. No laxity . NVI. Results Reviewed Results Reviewed: Xrays were obtained in the office today and personally reviewed by me of the right knee show intact joint prosthesis without loosening or fracture Assessment & Plan Assessment & Plan (1) History of total right knee replacement: Code(s): Z96.651 - Presence of right artificial knee joint Category: Surgical (2) Pes anserine bursitis: Code(s): M70.50 - Other bursitis of knee, unspecified knee Category: Medical Plan Given order for physical therapy to work on quad strengthening and gait training exercises. She was also given some home exercises in the office today. If symptoms persist or worsens, patient will contact the office, otherwise follow- up as needed. Orders: Orders XR knee RT 3V Today M17.11 - Unilateral primary osteoarthritis, right knee Patient Instructions: Scribed for Karina Haynes PA-C, by Noe Downing medical orderly, on 10/06/2023 at 11:30 AM JAMES. Karina Maldonado PA-C, have personally reviewed and agree with the information entered by the scribe. Coding Level of Care Code Est Pt Level 3 (83540) Diagnoses History of total right knee replacement Z96.651 Pes anserine bursitis M70.50
[2023-10-06 12:07] VITALS: BMI 28.9
== END 2023-10-06 12:40 | disposition home or self-care (01) ==
PROVIDERS: PCP Nurse Practitioner Family; Visit Provider Physician Assistant
DX: M17.11 Unilateral primary osteoarthritis, right knee (principal); M70.51 Other bursitis of knee, right knee; Z96.651 Presence of right artificial knee joint
CPT/HCPCS: 99203

== ENCOUNTER 2023-11-07 09:22 | Outpatient (REF) | payer MEDICARE, SELFPAY ==
--- NOTE | ~2023-11-07 | MM_ITS ---
EXAMINATION: MM SCREENING DIGITAL BREAST TOMOSYNTHESIS, BILATERAL CLINICAL INFORMATION: Screening. Asymptomatic. The patient is status post left mastectomy. COMPARISON: Mammography: This study is compared with prior exams dating back to 2019. TECHNIQUE: Digital breast tomosynthesis is performed in both the craniocaudal and mediolateral oblique views along with computer-aided detection (CAD). Synthesized 2D images are generated from the tomosynthesis. FINDINGS: There are scattered areas of fibroglandular density (ACR BI-RADS breast composition Category b). There are no significant masses, abnormal calcifications, or other abnormalities. There are unchanged, benign, secretory calcifications in the right breast. MM/MM tomosynthesis screening RT IMPRESSION: No mammographic evidence of malignancy. ASSESSMENT: BI-RADS BI-RADS 2 - Benign Findings RECOMMENDATION: Routine annual mammography screening. 1 year F/U This examination should not preclude the clinical evaluation of a suspicious palpable abnormality. This patient's information was entered into a reminder system with a target due date for their next mammogram.
--- NOTE | ~2023-11-07 | MM_ITS ---
EXAMINATION: BONE DENSITOMETRY CLINICAL INDICATION: Asymptomatic menopausal state. COMPARISON: Previous BD dated 10/20/2021 and baseline BD dated 10/18/2007. TECHNIQUE: Using a [employer] DXA System (software version: 13.1) manufactured by [employer], dual-energy x-ray absorptiometry was performed of the lumbar spine and right hip. The patient has had a left hip replacement. The images are of good technical quality. Summary results are attached. FINDINGS: AP SPINE L1-L4: Current: BMD 1.236 g/cm2, Z-score 2.2, T-score 0.5, normal, 6.6% decrease from previous, 3.2% increase from baseline (<5% change is not significant). Prior: BMD 1.323 g/cm2. Baseline: BMD 1.198 g/cm2. RIGHT FEMUR, NECK: Current: BMD 1.000 g/cm2, Z-score 2.1, T-score -0.3, normal. Prior: BMD 1.042 g/cm2. Baseline: BMD 1.005 g/cm2. RIGHT FEMUR, TOTAL: Current: BMD 1.022 g/cm2, Z-score 2.4, T-score 0.1, normal, 4.5% decrease from previous, 4.7% decrease from baseline (<5% change is not significant). Prior: BMD 1.070 g/cm2. Baseline: BMD 1.072 g/cm2. IDENTIFIED RISK FACTORS: Menopause. Hysterectomy. HISTORY OF FRACTURE: None listed. MEDICATIONS: Calcium supplement and/or multivitamin. Vitamin D. MM/XR DEXA axial skeleton IMPRESSION: 1. DIAGNOSIS: Normal bone density based on the lowest T-score value of -0.3 in the femoral neck applying World Health Organization criteria. 2. 10-YEAR FRACTURE RISK PREDICTION, FRAX: According to the guidelines, FRAX calculation should only be performed on patients in the osteopenia bone density category.?Therefore, FRAX was not performed on this patient.? 3. Treatment Recommendations: NOF guidelines recommend consideration for treatment in postmenopausal women and men age 50 and older presenting with the following: -A hip or vertebral (clinical or morphometric) fracture. -T-score less than or equal to -2.5 at the femoral neck or spine after appropriate evaluation to exclude secondary causes. -Low bone mass at the hip or spine and a 10-year fracture probability by FRAX of greater than or equal to 3% for hip fracture or greater than or equal to 20% for major osteoporotic fracture based on the [place] adapted WHO algorithm. 4. Other Recommendations: All treatment decisions require clinical judgment and consideration of individual patient factors, including patient preferences, comorbidities, previous drug use, risk factors not captured in the FRAX model (e.g. frailty, falls, vitamin D deficiency, increased bone turnover, interval significant decline in bone density) and possible under or overestimation of fracture risk by FRAX. FUTURE SCAN RECOMMENDATION: People with diagnosed cases of osteoporosis or at high risk for fracture should have regular bone mineral density tests. For patients eligible for Medicare, routine testing is allowed once every 2 years. The testing frequency can be increased to one year for patients who have rapidly progressing disease, those who are receiving or discontinuing medical therapy to restore bone mass, or have additional risk factors.
== END 2023-11-07 09:23 | disposition home or self-care (01) ==
LOC: HO.MAMMO 09:22
PROVIDERS: PCP Nurse Practitioner Family; Visit Provider Nurse Practitioner Family
DX: Z12.31 Encounter for screening mammogram for malignant neoplasm of breast (principal); Z13.820 Encounter for screening for osteoporosis; Z78.0 Asymptomatic menopausal state
CPT/HCPCS: 77063; 77067; 77080

== ENCOUNTER → 2023-11-07 10:00 | Outpatient (BNV) | payer MEDICARE, SELFPAY | PROVIDERS: PCP Nurse Practitioner Family; Visit Provider Radiology Diagnostic Radiology | DX: Z12.31 Encounter for screening mammogram for malignant neoplasm of breast (principal) | CPT/HCPCS: 77063; 77067 ==

== ENCOUNTER 2023-12-18 09:49 | Outpatient (AMB) | payer MEDICARE, SELFPAY ==
[2023-12-18 09:51] VITALS: BP 136/66; PULSE 71; O2SAT 96; BMI 29.6
--- NOTE | 2023-12-18 09:51 | MHC.PC.OV ---
Vital Signs 12/18/23 09:51 Height 5 ft 2 in Weight 162 lb 2 oz BMI 29.6 BP 136/66 Blood Pressure Location Rt brachial Position Sitting Pulse 71 Pulse Source Pulse Oximeter Pulse Oximetry (%) 96 Oxygen Delivery Method Room Air Intake Visit Reasons: 6 Month follow up Intake Note: Pt is here today for her 6 month follow up. Allergies codeine [Codeine] Allergy (Mild, Verified 12/18/23 12:44) VOMITING sulfamethoxazole [From Bactrim] Allergy (Mild, Verified 12/18/23 12:44) Headache trimethoprim [From Bactrim] Allergy (Mild, Verified 12/18/23 12:44) Headache Tobacco use date assessed: 12/18/23 Fall risk assessment: No Falls in past year Last assessed Fall Risk: 12/18/23 Dental Screening Dental Screen Date: 12/18/23 Did you have a dental visit in the last 12 months?: Yes Did you have a dental problem in the last 6 months where you did not have access to dental care?: No Was dental information given to patient?: Patient has dentist HPI 6 Month follow up HPI Details HTN: Blood pressure is stable, managed with atenolol 50mg, furosemide 20mg, and hydrochlorothiazide 12.5mg. Pt brought in BPs from home and they are stable. Denies chest pain, shortness of breath, headache, dizziness, and blurred vision. Pt has edema to her BLE. She reports that this decreases later in the day. [facility] Medical History (Updated 12/18/23 @ 10:01 by MINNIE Stewart-SHEELA) Paroxysmal atrial fibrillation Atrial fibrillation Elevated cholesterol HTN (hypertension) Nail fungus Non-toxic multinodular goiter Surgical History Hx of blepharoplasty Hx of cholecystectomy Hx of appendectomy Hx of hysterectomy History of left hip replacement Hx of total knee replacement H/O total mastectomy of left breast Family History Other No family history of cancer Social History (Updated 10/06/23 @ 12:08 by Estelle Schwarz [facility]) Household Members: None Housing: House Are you a primary pet caretaker to a significant other at home: No Do you presently have visiting nurse or other home services: No Alcohol intake: current Alcohol intake frequency: does not drink Patient Tobacco Use Status: Never used Tobacco e-Cigarette/Vaping Use: Never Used Second Hand Smoke Exposure: No service: No Current occupational status: retired 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 1. Little interest or pleasure in doing things: not at all 2. Feeling down, depressed, or hopeless: not at all 3. Trouble falling or staying asleep, or sleeping too much: not at all 4. Feeling tired or having little energy: not at all 5. Poor appetite or overeating: not at all 6. Feeling bad about yourself - or that you are a failure or have let yourself or your family down: not at all 7. Trouble concentrating on things, such as reading the newspaper or watching television: not at all 8. Moving or speaking so slowly that other people could have noticed. Or the opposite - being so fidgety or restless that you have been moving around a lot more than usual: not at all 9. Thoughts that you would be better off or of hurting yourself in some way: not at all Total score: 0 Depression Screening Interpretation: Negative Depression Screening Done: Yes 02805 - PHQ-9 Billing: Yes Source: Developed by Drs. Holden Kinsey, Tammie Rodríguez, Luis Armando Quezada and colleagues, with an educational tobias from [employer]. Thrive Questionnaire Date Thrive assessed: 12/18/23 I am a: Patient What is your living situation today?: I have a steady place to live Within the past 12 months, did the food you bought not last and you didn't have the money to get more?: Never true Within the past 12 months, did you worry whether your food would run out before you got money to buy more?: Never true Do you have trouble paying for medicines?: No Do you have trouble getting transportation to medical appointments?: No Do you have trouble paying your heating and electricity bill?: No Do you have trouble taking care of your child, family member or friend?: No Do you have trouble with day-to-day activities such as bathing, preparing meals, shopping, managing finances, etc.?: No Are you currently unemployed and looking for a job?: No Are you interested in more education?: No Please select the resources that you would like help with: None Currently or been in a relationship where the following occur: No concerns reported THRIVE Score: 0 AUDIT C Alcohol Use Questionnaire (AUDIT-C) 1. How often do you have a drink containing alcohol?: Monthly or less 2. How many drinks containing alcohol do you have on a typical day when you are drinking?: 1 or 2 3. How often do you have six or more drinks on one occasion?: Never Total Score: 1 Score Reviewed/Action Taken: Yes LEXI-7 AMB Questionnaire LEXI-7 Date LEXI - 7 assessed: 12/18/23 Feeling nervous, anxious, or on edge: 0 = Not at all Not being able to stop or control worryin = Not at all Worrying too much about different things: 0 = Not at all Trouble relaxin = Not at all Being so restless that it is hard to sit still: 0 = Not at all Becoming easily annoyed or irritable: 0 = Not at all Feeling afraid as if something awful might happen: 0 = Not at all Total LEXI-7 score (0-4 normal; 5-9 mild; 10-14 moderate; 15-21 severe): 0 Source: Developed by Drs. Holden Kinsey, Tammie Rodríguez, Luis Armando Quezada and colleagues, with an educational tobias from [employer]. LEXI-7 Assessment Billing LEXI-7 Assessment Tool: LEXI-7 Assessment 36903 Review of Systems Const Reports as per HPI Physical exam (Primary Care) Vital Signs: Last Vital Signs Pulse 71 12/18/23 09:51 BP 136/66 12/18/23 09:51 Pulse Ox 96 12/18/23 09:51 Oxygen Delivery Method Room Air 12/18/23 09:51 BMI result Body Mass Index 29.6 Tobacco/Smoking Status: Tobacco use Status Tobacco use date assessed 12/18/23 12/18/23 09:57 Patient Tobacco Use Status Never used Tobacco 12/18/23 09:53 e-Cigarette/Vaping Use Never Used 12/18/23 09:53 PHQ-9: PHQ-9 Score PHQ-9: Total score 0 12/18/23 10:11 Depression Screening Interpretation: Negative Thrive Assessment: Date of Thrive Assessment Date Thrive assessed 12/18/23 12/18/23 10:11 Currently or been in a relationship where the following occur: No concerns reported Const General: cooperative Orientation/consciousness: patient oriented x3 Resp Effort & Inspection: normal respiratory effort Auscultation: clear to auscultation bilaterally Cardio Rate: regular rate Rhythm: regular rhythm Heart sounds: S1 normal heart sound present, S2 normal heart sound present and Murmur heart sound present systolic Neuro General: patient oriented x3 Extrem Right lower extremity: edema Details: 1+ Left lower extremity: edema Details: 1+ Psych Appearance: grossly normal Mental Status: mental status grossly normal Speech and movement: Normal speech and movement present Affect: normal affect Attitude: cooperative Thought process: Normal thought process present Thought content: Normal thought content present Insight: Good insight present (Psych) Judgement: Good judgement present (Psych) Assessment and Plan Assessment & Plan (1) HTN (hypertension): Code(s): I10 - Essential (primary) hypertension Plan: Stable (2) Vitamin D deficiency: Code(s): E55.9 - Vitamin D deficiency, unspecified Plan The patient agreed to the use of a biomedical equipment support specialist for this encounter. Scribed for JALEEL Chi by Mis Ghotra biomedical equipment support specialist, on 12/18/2023 at 10:05 EST. Orders: Orders TSH reflex Free T4 Today I10 - Essential (primary) hypertension Complete Blood Count Auto Diff Today I10 - Essential (primary) hypertension Comprehensive [place]. Panel Fast Today I10 - Essential (primary) hypertension UA CC w/rflx Micro + Cult Today I10 - Essential (primary) hypertension Lipid Panel Today I10 - Essential (primary) hypertension Vitamin D 25-OH Total Today E55.9 - Vitamin D deficiency, unspecified, I10 - Essential (primary) hypertension Coding Level of Care Code Est Pt Level 3 (44394) Diagnoses HTN (hypertension) I10 Vitamin D deficiency E55.9 Additional Codes LEXI-7 Assessment Billing - LEXI-7 Assessment Tool: LEXI-7 Assessment [id number] ([id number])
== END 2023-12-18 12:20 | disposition home or self-care (01) ==
PROVIDERS: PCP Nurse Practitioner Family; Visit Provider Nurse Practitioner Family
DX: I10 Essential (primary) hypertension (principal); E55.9 Vitamin D deficiency, unspecified
CPT/HCPCS: 99213

== ENCOUNTER 2023-12-19 11:17 | Outpatient (AMB) | payer MEDICARE, SELFPAY ==
--- NOTE | 2023-12-19 11:19 | MHC.OFFVIS ---
Vital Signs 12/19/23 11:20 Height 5 ft 2 in Weight 160 lb 14.999 oz BMI 29.4 BP 124/80 Blood Pressure Location Rt brachial Position Sitting Pulse 68 Intake Visit Reasons: 6 month follow up Intake Note: 6 month follow-up feeling good Reporting Lead Required: No Allergies codeine [Codeine] Allergy (Mild, Verified 12/18/23 12:44) VOMITING sulfamethoxazole [From Bactrim] Allergy (Mild, Verified 12/18/23 12:44) Headache trimethoprim [From Bactrim] Allergy (Mild, Verified 12/18/23 12:44) Headache Medication List - Last Reconciled 12/19/23 by Galdino Fonseca MD apixaban (Eliquis) 5 mg PO BID 90 days ascorbate calcium (vitamin C) 1,000 mg PO DAILY atenolol 50 mg (2 x 25 mg) PO BID atorvastatin 20 mg PO DAILY cholecalciferol (vitamin D3) 25 mcg PO DAILY furosemide (Lasix) 20 mg PO DAILY gabapentin 300 mg PO DAILY hydrochlorothiazide 12.5 mg PO DAILY [id number]-FA-vit K-lut 8 mg iron-400 mcg-50 mcg (Centrum Silver Women) 1 tab PO DAILY HPI Comments Details: Velia comes for follow-up. Since I last saw she would 1 episode of atrial fibrillation while she was resting usually in the evening time. Lasted for couple of hours and then subsided. There was no clear triggers for it. She denies any ongoing continue symptoms. Continues to have misty ankle swelling, says better when she is actually walking more. Denies any orthopnea, PND, worsening shortness of breath. Does get exertional shortness of breath. Denies any wheezing. Denies any exertional chest pain. No lightheadedness, syncope. Noticed to have diuretics both hydrochlorothiazide and Lasix. [facility] Medical History Paroxysmal atrial fibrillation Atrial fibrillation Elevated cholesterol HTN (hypertension) Nail fungus Non-toxic multinodular goiter Surgical History Hx of blepharoplasty Hx of cholecystectomy Hx of appendectomy Hx of hysterectomy History of left hip replacement Hx of total knee replacement H/O total mastectomy of left breast Family History Other No family history of cancer Social History Household Members: None Housing: House Are you a primary healthcare applications analyst to a significant other at home: No Do you presently have visiting nurse or other home services: No Alcohol intake: current Alcohol intake frequency: does not drink Patient Tobacco Use Status: Never used Tobacco e-Cigarette/Vaping Use: Never Used Second Hand Smoke Exposure: No service: No Current occupational status: retired 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 Cognitive needs: No Hearing needs: No Vision needs: No Review of Systems Const Denies chills, Denies fatigue, Denies fever(s), Denies frequent falls, Denies weakness, Denies weight gain and Denies weight loss ENT Denies dizziness Card Denies chest pain, Denies leg edema, Denies lightheadedness, Denies palpitations, Denies dyspnea, Denies dyspnea on exertion, Denies orthopnea and Denies other (loss of consciousness) Resp Denies cough, Denies dyspnea and Denies dyspnea on exertion GI Denies hematochezia and Denies change in stool character Musc Denies abnormal gait, Denies muscle weakness, Denies numbness, Denies radiating pain into limb and Denies tingling Neuro Denies Abnormal speech present, Denies abnormal gait, Denies dizziness, Denies frequent falls, Denies numbness, Denies tingling and Denies weakness Endo Denies fatigue and Denies palpitations Physical Exam Vital Signs: Last Vital Signs Pulse 68 12/19/23 11:20 BP 124/80 12/19/23 11:20 BMI result Body Mass Index 29.4 Const General: cooperative, comfortable, no acute distress, alert, awake, Physically active and well groomed Nutritional Appearance: overweight Orientation/consciousness: patient oriented x3 Limitations: no limitations HEENT Head: Yes normocephalic and Yes atraumatic Neck Neck: Yes trachea midline, Yes supple and Yes no JVD Resp Effort & Inspection: normal respiratory effort Auscultation: clear to auscultation bilaterally and diminished lung sounds Cardio Jugular venous distension: no JVD Palpation: normal PMI Rhythm: abnormal rhythm irregularly irregular Heart sounds: S1 normal heart sound present, S2 normal heart sound present, no click, no gallops and Murmur heart sound present systolic early GI Auscultation: normal bowel sounds Skin General skin exam: no rashes or lesions noted Neuro General: patient oriented x3 and no focal motor deficits Speech: No Abnormal speech present Extrem General: Yes no clubbing, cyanosis or edema Assessment & Plan Assessment & Plan (1) Paroxysmal atrial fibrillation: Code(s): I48.0 - Paroxysmal atrial fibrillation Category: Medical Plan: Paroxysmal atrial fibrillation with minimal recurrence. At this point time these are not life altering limiting. At this point time will not change any therapy and would avoid using antiarrhythmic drug therapy. Continue to avoid stimulants. Continue atenolol therapy. Continue full oral anticoagulation, currently on Eliquis 5 mg b.i.d.. Quarterly renal function test should be pursued. Advised to call me with worsening symptoms. (2) HTN (hypertension): Code(s): I10 - Essential (primary) hypertension Category: Medical Plan: Hypertension which is currently well optimized advised to monitor blood pressure intermittently at home. Target goal blood pressure less than 130/84. Low-salt diet was discussed. 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 At this point time continue the same and would avoid dual diuretic therapy to reduce risk of electrolyte abnormalities. Follow-up echocardiogram 6 months time. Follow up in the clinic in 6 months time, sooner p.r.n.. Thank you for allowing me to partake in her care Medications: Discontinued hydrochlorothiazide Discontinued Reason: Doctor's Order 12.5 mg PO DAILY 90 caps 1RF Coding Level of Care Code Est Pt Level 4 (41074) Diagnoses Paroxysmal atrial fibrillation I48.0 HTN (hypertension) I10
[2023-12-19 11:20] VITALS: BP 124/80; PULSE 68; BMI 29.4
== END 2023-12-19 11:39 | disposition home or self-care (01) ==
PROVIDERS: PCP Nurse Practitioner Family; Visit Provider Internal Medicine Cardiovascular Disease
DX: I48.0 Paroxysmal atrial fibrillation (principal); I10 Essential (primary) hypertension
CPT/HCPCS: 99214

== ENCOUNTER → 2023-12-19 11:17 | Outpatient (BNVA) | payer MEDICARE, SELFPAY | PROVIDERS: PCP Nurse Practitioner Family; Visit Provider Internal Medicine Cardiovascular Disease | DX: I48.0 Paroxysmal atrial fibrillation (principal); I10 Essential (primary) hypertension; Z79.01 Long term (current) use of anticoagulants; Z79.899 Other long term (current) drug therapy | CPT/HCPCS: 99212 ==

== ENCOUNTER 2024-06-25 13:06 | Outpatient (AMB) | payer MEDICARE, SELFPAY ==
[2024-06-25 13:08] VITALS: BP 132/80; PULSE 72; O2SAT 96; BMI 26.6
--- NOTE | 2024-06-25 13:08 | AM.OFFVISMDC ---
Intake Vital Signs 06/25/24 13:08 Height 5 ft 6 in Weight 165 lb BMI 26.6 BP 132/80 Blood Pressure Location Rt brachial Position Sitting Pulse 72 Pulse Source Pulse Oximeter Pulse Oximetry (%) 96 Oxygen Delivery Method Room Air Intake Visit Reasons: SWV G0439 Intake Note: pt is here for MWV Moisture Conditioner Operator Required: No Accompanied by: Self / Same As Patient Allergies codeine [Codeine] Allergy (Mild, Verified 06/25/24 13:08) VOMITING sulfamethoxazole [From Bactrim] Allergy (Mild, Verified 06/25/24 13:08) Headache trimethoprim [From Bactrim] Allergy (Mild, Verified 06/25/24 13:08) Headache Do you need a note to return to daycare/school/sports/work: No HPI V G0439 HPI Details here for a S-AWV. [place] of care not filled out. Pt does see a cut order hand and a safety scientist. HTN: denies any cp, sob, suh, blurred vision. Does report some edema to BLE, though it disappears at night when lying down, and as she moves throughout the day, gravity causes swelling to BLE. BPs from home are mostly stable, though some slightly increased. BP in office today is stable. Encouraged pt to get labs drawn. [facility] Medical History Paroxysmal atrial fibrillation Atrial fibrillation Elevated cholesterol HTN (hypertension) Nail fungus Non-toxic multinodular goiter Surgical History Hx of blepharoplasty Hx of cholecystectomy Hx of appendectomy Hx of hysterectomy History of left hip replacement Hx of total knee replacement H/O total mastectomy of left breast Family History Other No family history of cancer Social History Household Members: None Housing: House Are you a primary residential child care counselor to a significant other at home: No Do you presently have visiting nurse or other home services: No Alcohol intake: current Alcohol intake frequency: does not drink Patient Tobacco Use Status: Never used Tobacco e-Cigarette/Vaping Use: Never Used Second Hand Smoke Exposure: No service: No Current occupational status: retired 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 Cognitive needs: No Hearing needs: No Vision needs: No Questionnaire Medicare Wellness Checkup What is your age?: 79 or older What gender do you identify with?: female During the past 4 weeks, how much have you been bothered by emotional problems such as feeling anxious, depressed, irritable, sad or downhearted, and blue?: not at all During the past 4 weeks, has your physical & emotional health limited your social activities with family, friends, neighbors, or groups?: not at all During the past 4 weeks, how much bodily pain have you generally had?: no pain During the past 4 weeks, was someone available to help you if you needed & wanted help?: yes, as much as I wanted During the past 4 weeks, what was the hardest physical activity you could do for at least 2 minutes?: moderate Can you get to places out of walking distance without help? (For eg., can you travel alone on buses, taxis or drive your car?): Yes Can you go shopping for groceries or clothes without someone's help?: Yes Can you prepare your own meals?: Yes Can you do your housework without help?: Yes Because of any health problems, do you need the help of another person with your personal care needs such as eating, bathing, dressing or getting around the house?: No Can you handle your own money without help?: Yes During the past 4 weeks, how would you rate your health in general?: very good During the past 4 weeks how have things been going for you?: very well; could hardly better Are you having difficulties driving your car?: not applicable, I don't use a car Do you always fasten your seat belt when you are in a car?: yes, usually During past 4 weeks, have you been bothered by the following: never: Falling or dizzy when standing up, Sexual problems?, Trouble eating well?, Teeth or denture problems? and Problems using the telephone? and seldom: Tiredness or fatigue? Have you fallen 2 or more times in the past year?: No Are you afraid of falling?: Yes Are you a smoker?: no During the past 4 weeks, how many drinks of wine, beer, or other alcoholic beverages did you have?: 1 drink or less per week Do you exercise for about 20 minutes 3 or more times a week?: yes, some of the time Have you been given information to help with the following?: no: Hazards in your house that might hurt you? and no: Keeping track of your medications? How often do you have trouble taking medicines the way you have been told to take them?: I always take medicine as prescribed How confident are you that you can control & manage most of your health problems?: very confident What is your race?: White Mini Mental State Exam (MMSE) Orientation What is the (year) (season) (date) (day) (month)?: year, season, date, day and month Where are we (state) (county) (town or city) (hospital) (floor)?: state, county, town or city, hospital/clinic and floor Registration Name of 3 unrelated objects clearly and slowly, then ask patient to repeat all 3 of them. (1st repeat determines score. Make sure they can repeat all three): object 1, object 2 and object 3 Attention & Calculation (CHOOSE ONE) Spell WORLD backwards (DLROW): 5 letters Recall Ask patient to repeat the 3 items from question #3.: object 1, object 2 and object 3 Language Show patient a wristwatch & ask what it is. Repeat for pencil.: watch and pencil Ask the patient to repeat the phrase 'No ifs, ands, or buts' after you.: correct Ask the patient to 'take a piece of paper with their right hand' 'fold paper in half' 'place paper on floor': take paper in right hand, fold paper in half and place paper on floor Print the sentence 'CLOSE YOUR EYES' on a piece. If patient actually closes eyes then score.: followed written direction Give patient a blank piece of paper & ask to write a sentence. Score if it contains a noun & verb.: sentence contains subject and verb Ask patient to copy figure of intersecting pentagons exactly. Score if all 10 angles & 2 intersects are included.: all 10 angles present & 2 are intersected Score Score: 30 Activity of Daily Living Bathing - sponge bath, tub bath or shower: receives no assistance (gets in/out by self, if usual bathing means Dressing - getting clothes from closets & drawers, including inner/outer garments & fasteners.: gets clothes & gets completely dressed without help Toileting - going to the 'toilet room' for urine/bowel elimination & cleaning self/arranging clothes: goes to toilet room, cleans self, arranges clothes without help Transfer: moves in & out of bed and chair without help (may use support object) Continence: controls urination/bowel movements completely by self Feeding: feeds self without help Total Score: 0 Information obtained from: patient Using telephone: independent Traveling: needs assistance Shopping: independent Preparing meals: independent Housework: independent Taking medicine: independent Managing money: independent PHQ-9 Over the last 2 weeks, how often have you been bothered by any of the following problems? 1. Little interest or pleasure in doing things: not at all 2. Feeling down, depressed, or hopeless: not at all 3. Trouble falling or staying asleep, or sleeping too much: not at all 4. Feeling tired or having little energy: not at all 5. Poor appetite or overeating: not at all 6. Feeling bad about yourself - or that you are a failure or have let yourself or your family down: not at all 7. Trouble concentrating on things, such as reading the newspaper or watching television: not at all 8. Moving or speaking so slowly that other people could have noticed. Or the opposite - being so fidgety or restless that you have been moving around a lot more than usual: not at all 9. Thoughts that you would be better off or of hurting yourself in some way: not at all Total score: 0 Depression Screening Interpretation: Negative Depression Screening Done: Yes 43997 - PHQ-9 Billing: Yes Source: Developed by Drs. Holden Kinsey, Tammie Rodríguez, Luis Armando Quezada and colleagues, with an educational tobias from [employer]. LEXI-7 AMB Questionnaire LEXI-7 Date LEXI - 7 assessed: 06/25/24 Feeling nervous, anxious, or on edge: 0 = Not at all Not being able to stop or control worryin = Not at all Worrying too much about different things: 0 = Not at all Trouble relaxin = Not at all Being so restless that it is hard to sit still: 0 = Not at all Becoming easily annoyed or irritable: 0 = Not at all Feeling afraid as if something awful might happen: 0 = Not at all Total LEXI-7 score (0-4 normal; 5-9 mild; 10-14 moderate; 15-21 severe): 0 Source: Developed by Drs. Holden Kinsey, Tammie Rodríguez, Luis Armando Quezada and colleagues, with an educational tobias from [employer]. LEXI-7 Assessment Billing LEXI-7 Assessment Tool: LEXI-7 Assessment 40390 Physical Exam Vital Signs: Last Vital Signs Pulse 72 06/25/24 13:08 BP 132/80 06/25/24 13:08 Pulse Ox 96 06/25/24 13:08 Oxygen Delivery Method Room Air 06/25/24 13:08 BMI result Body Mass Index 26.6 Resp Effort & Inspection: normal respiratory effort Auscultation: clear to auscultation bilaterally Cardio Rate: regular rate Rhythm: regular rhythm Heart sounds: S1 normal heart sound present, S2 normal heart sound present and Murmur heart sound present systolic Neuro Other: able to tandem walk, neg rhomberg, passed whisper test, able to stand from sitting position Extrem Other: +1 BLE Assessment & Plan Assessment & Plan (1) Encounter for subsequent annual wellness visit (AWV) in Medicare patient: Code(s): Z00.00 - Encounter for general adult medical examination without abnormal findings Plan . Quality Reporting (2019) Depression/Bipolar (159/160/161/177) PHQ-9: Total score: 0 Coding Level of Care Code Medicare Subsequent (G0439) Est Pt Level 3 (64786) Diagnoses Encounter for subsequent annual wellness visit (AWV) in Medicare patient Z00.00 CPT Codes Advance Care Planning - Time spent: 1-15 minutes, on File ([id number]) Additional Codes LEXI-7 Assessment Billing - LEXI-7 Assessment Tool: LEXI-7 Assessment 93506 ([id number]) PHQ-9 - 95749 - PHQ-9 Billing: Yes ([id number]) Advance Care Planning Forms completed: Health Care Proxy (form filled out and scanned), MOLST (form filled out and in scan pile) and Living will (pt reports this is already done) Time spent: 1-15 minutes, on File Actual minutes spent: 12
== END 2024-06-25 14:06 | disposition home or self-care (01) ==
PROVIDERS: PCP Nurse Practitioner Family; Visit Provider Nurse Practitioner Family
DX: Z00.00 Encounter for general adult medical examination without abnormal findings (principal)

== ENCOUNTER → 2024-06-25 13:06 | Outpatient (BNVA) | payer MEDICARE, SELFPAY | PROVIDERS: PCP Nurse Practitioner Family; Visit Provider Nurse Practitioner Family | DX: Z00.00 Encounter for general adult medical examination without abnormal findings (principal) | CPT/HCPCS: 96127 ==

== ENCOUNTER 2024-06-27 09:45 | Outpatient (REF) | payer MEDICARE, SELFPAY ==
[2024-06-27 11:44] LABS: Anion Gap 10 (12-20); Blood Urea Nitrogen 20 mg/dL (9-16); Calcium 9.5 mg/dL (8.4-10.2); Carbon Dioxide 31 mmol/L (22-29); Chloride 108 mmol/L (96-108); Estimated Glomerular Filt Rate 58; Glucose Random 91 mg/dL (60-115); Potassium 4.6 mmol/L (3.3-5.1); Sodium 144 mmol/L (135-145)
== END 2024-06-27 09:46 | disposition home or self-care (01) ==
LOC: HO.LAB 09:45
PROVIDERS: PCP Nurse Practitioner Family; Visit Provider Internal Medicine Cardiovascular Disease
DX: I48.0 Paroxysmal atrial fibrillation (principal); I10 Essential (primary) hypertension
CPT/HCPCS: 36415; 80048; 93005; 99212

== ENCOUNTER 2024-06-27 09:45 | Outpatient (AMB) | payer MEDICARE, SELFPAY ==
--- NOTE | 2024-06-27 10:06 | A.OFFVIS_ITS ---
Vital Signs 06/27/24 10:07 Height 5 ft 6 in Weight 163 lb 2.273 oz BMI 26.3 BP 122/72 Blood Pressure Location Rt brachial Position Sitting Pulse 65 Intake Visit Reasons: 6 mth f/up Intake Note: 6 month follow-up with ekg last Monday bp was up and c/o fatigue but good otherwise Switch Tender Required: No Allergies codeine [Codeine] Allergy (Mild, Verified 06/25/24 13:08) VOMITING sulfamethoxazole [From Bactrim] Allergy (Mild, Verified 06/25/24 13:08) Headache trimethoprim [From Bactrim] Allergy (Mild, Verified 06/25/24 13:08) Headache Medication List - Last Reconciled 06/27/24 by Galdino Fonseca MD apixaban (Eliquis) 5 mg PO BID 90 days ascorbate calcium (vitamin C) 1,000 mg PO DAILY atenolol 50 mg (2 x 25 mg) PO BID atorvastatin 20 mg PO DAILY cholecalciferol (vitamin D3) 25 mcg PO DAILY furosemide (Lasix) 20 mg PO DAILY gabapentin 300 mg PO DAILY utyrofkm-ntv-bmqn-FA-vit K-lut 8 mg iron-400 mcg-50 mcg (Centrum Silver Women) 1 tab PO DAILY HPI Comments Details: Velia comes for follow-up. She says last week she had episode of atrial fibrillation that lasted a full day. She felt low fuzzy in her head, tired and notice her heart beating irregularly and faster. Her usual baseline heart rate 63, she notices heart rate up to 72 beats per minute and the pulse was irregular . She had not seek any emergency care. The next day when she woke up she was feeling better and heart rate was more regular at that point time. She has not had any other major episodes. Denies any orthopnea, PND, worsening leg edema. Denies any lightheadedness, syncope. Blood pressure is generally remained stable. [facility] Medical History Paroxysmal atrial fibrillation Atrial fibrillation Elevated cholesterol HTN (hypertension) Nail fungus Non-toxic multinodular goiter Surgical History Hx of blepharoplasty Hx of cholecystectomy Hx of appendectomy Hx of hysterectomy History of left hip replacement Hx of total knee replacement H/O total mastectomy of left breast Family History Other No family history of cancer Social History Household Members: None Housing: House Are you a primary progressive care manager to a significant other at home: No Do you presently have visiting nurse or other home services: No Alcohol intake: current Alcohol intake frequency: does not drink Patient Tobacco Use Status: Never used Tobacco e-Cigarette/Vaping Use: Never Used Second Hand Smoke Exposure: No service: No Current occupational status: retired 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 Cognitive needs: No Hearing needs: No Vision needs: No Review of Systems Const Denies chills, Denies fatigue, Denies fever(s), Denies frequent falls, Denies weakness, Denies weight gain and Denies weight loss ENT Denies dizziness Card Denies chest pain, Denies leg edema, Denies lightheadedness, Denies palpitations, Denies dyspnea, Denies dyspnea on exertion, Denies orthopnea and Denies other (loss of consciousness) Resp Denies cough, Denies dyspnea and Denies dyspnea on exertion GI Denies hematochezia and Denies change in stool character Musc Denies abnormal gait, Denies muscle weakness, Denies numbness, Denies radiating pain into limb and Denies tingling Neuro Denies Abnormal speech present, Denies abnormal gait, Denies dizziness, Denies frequent falls, Denies numbness, Denies tingling and Denies weakness Endo Denies fatigue and Denies palpitations Physical Exam Vital Signs: Last Vital Signs Pulse 65 06/27/24 10:07 BP 122/72 06/27/24 10:07 BMI result Body Mass Index 26.3 Const General: cooperative, comfortable, no acute distress, alert, awake, Physically active and well groomed Nutritional Appearance: overweight Orientation/consciousness: patient oriented x3 Limitations: no limitations HEENT Head: Yes normocephalic and Yes atraumatic Neck Neck: Yes trachea midline, Yes supple and Yes no JVD Resp Effort & Inspection: normal respiratory effort Auscultation: clear to auscultation bilaterally and diminished lung sounds Cardio Jugular venous distension: no JVD Palpation: normal PMI Rhythm: abnormal rhythm irregularly irregular Heart sounds: S1 normal heart sound present, S2 normal heart sound present, no click, no gallops and Murmur heart sound present systolic early GI Auscultation: normal bowel sounds Skin General skin exam: no rashes or lesions noted Neuro General: patient oriented x3 and no focal motor deficits Speech: No Abnormal speech present Extrem General: Yes no clubbing, cyanosis or edema Office Procedures EKG Details: EKG shows normal sinus rhythm with sinus arrhythmia at 65 beats per minute otherwise normal EKG 54371-[id number], Complete Assessment & Plan Assessment & Plan (1) Paroxysmal atrial fibrillation: Code(s): I48.0 - Paroxysmal atrial fibrillation Category: Medical Plan: Paroxysmal atrial fibrillation which is highly symptomatic had an episode last week which appears to be related to stress. Patient has not had any other episodes. Will continue pursue rhythm control approach given his symptomatic nature of atrial fibrillation. Next time I advised her to take an extra atenolol when she was symptoms to see if this will bring her back to sinus rhythm but pill in the pocket approach. If not and she has more frequent episodes will consider antiarrhythmic drug therapy. For now continue current therapy. Continue full oral anticoagulation, currently on Eliquis 5 mg b.i.d.. Quarterly renal function test should be pursued. Avoidance of stimulants was discussed. Stress mitigation strategies were discussed. (2) HTN (hypertension): Code(s): I10 - Essential (primary) hypertension Category: Medical Plan: Hypertension with early incipient heart failure syndrome, currently on Lasix therapy. She does have evidence of diastolic dysfunction and elevated right ventricular systolic pressure. Clinically without any signs of heart failure at this point time. Continue aggressive blood pressure control. Continue current diuretic regimen with Lasix. Daily weight monitoring avoidance of salt loading was discussed. Follow-up echocardiogram 6 months time. Encouraged to maintain activity level as tolerated. Will follow up in the clinic in 6 months time, sooner p.r.n.. Thank you for allowing me to partake in his care. Orders: Orders Basic Metabolic Panel Today I48.0 - Paroxysmal atrial fibrillation CA echo transthoracic complete 6 Months I48.0 - Paroxysmal atrial fibrillation Coding Level of Care Code Est Pt Level 4 (70060) Complex EM visit Add On G2211 Diagnoses Paroxysmal atrial fibrillation I48.0 HTN (hypertension) I10 CPT Codes EKG - CPT: 58359-Wrzdkjftfqdvatkwi, Complete ([id number])
[2024-06-27 10:07] VITALS: BP 122/72; PULSE 65; BMI 26.3
== END 2024-06-27 10:28 | disposition home or self-care (01) ==
PROVIDERS: PCP Nurse Practitioner Family; Visit Provider Internal Medicine Cardiovascular Disease
DX: I48.0 Paroxysmal atrial fibrillation (principal); I10 Essential (primary) hypertension
CPT/HCPCS: 93010; 99214; G2211

== ENCOUNTER 2024-07-23 09:23 | Outpatient (AMB) | payer MEDICARE, SELFPAY ==
--- NOTE | 2024-07-23 10:11 | MHC.OFFWIV ---
Intake Vital Signs 07/23/24 10:13 Weight 164 lb BP 114/70 Blood Pressure Location Rt brachial Position Sitting Pulse 73 Pulse Source Pulse Oximeter Temp 97.9 F Temp Source Oral Pulse Oximetry (%) 95 Oxygen Delivery Method Room Air Intake Visit Reasons: EP Fever, body aches, sore throat, headache Intake Note: Patient here for fever, body aches, SOB (hx of COPD) and headaches that has been present since monday. Patient Tobacco Use Status: Never used Tobacco Allergies codeine [Codeine] Allergy (Mild, Verified 07/23/24 10:12) VOMITING sulfamethoxazole [From Bactrim] Allergy (Mild, Verified 07/23/24 10:12) Headache trimethoprim [From Bactrim] Allergy (Mild, Verified 07/23/24 10:12) Headache Do you need a note to return to daycare/school/sports/work: No HPI HPI Comments History of Present Illness Details History - The patient is an 88-year-old female presenting with three days of sore throat, fever with Tmax 101F, and increased fatigue. - A flu vaccination was received this year, potentially mitigating the severity of symptoms. - She has been experiencing increased shortness of breath, a continuation of her known COPD. Has not had to use her inhaler. - A negative COVID-19 test was conducted on Monday at home, with ongoing concerns related to viral etiologies. - She self-administered ibuprofen twice resulting in partial symptom relief. Physical Exam General: Cooperative, healthy appearing, comfortable and no acute distress Orientation/consciousness: Patient oriented x3 Limitations: No limitations Head: Normal to inspection Ears: Hearing grossly normal bilaterally, external ears normal and TM's normal bilaterally, some fluid present Nose: Normal external nose present, Normal nares present and No nasal discharge present Face and sinus: Normal facial exam and Yes sinuses nontender Mouth: Normal oral and palatal mucosa present and moist mucous membranes Throat: Yes tonsils normal, Yes uvula midline. Posterior oropharynx erythema, throat red Eyes: Appearance normal, both eyes and all related structures Neck: Normal visual inspection Respiratory: Clear to auscultation bilaterally. Normal respiratory effort, able to speak in complete sentences, no respiratory distress, not tachypneic, no tripod positioning and no use of accessory muscles Cardiovascular: Regular rate and rhythm. Normal S1 and S2 Skin: No rashes or lesions noted Neuro: Patient oriented x3 Extremities: Normal to inspection and Yes no clubbing, cyanosis or edema PFSH Medical History Paroxysmal atrial fibrillation Atrial fibrillation Elevated cholesterol HTN (hypertension) Nail fungus Non-toxic multinodular goiter Surgical History Hx of blepharoplasty Hx of cholecystectomy Hx of appendectomy Hx of hysterectomy History of left hip replacement Hx of total knee replacement H/O total mastectomy of left breast Family History Other No family history of cancer Social History Household Members: None Housing: House Are you a primary certified social workers in health care to a significant other at home: No Do you presently have visiting nurse or other home services: No Alcohol intake: current Alcohol intake frequency: does not drink Patient Tobacco Use Status: Never used Tobacco e-Cigarette/Vaping Use: Never Used Second Hand Smoke Exposure: No service: No Current occupational status: retired 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 A viral syndrome, most likely mild influenza, is suspected due to recent symptoms and having received the flu vaccine. I will proceed with additional testing for influenza, COVID-19, and RSV. The patient has been advised to utilize her home inhaler for COPD exacerbations, with specific dosing instructions given. Symptomatic treatment with OTC medications like ibuprofen or acetaminophen is suggested for fever and throat pains. Traditional methods, such as honey and lemon tea, and warm salt water gargles, have been recommended for throat comfort. I have advised her on performing deep breathing exercises to prevent pneumonia. We will call with test results later today to provide any further guidance. Patient was informed and verbally consented to the use of an ambient scribe for clinic note documentation during this visit Orders: Orders SARS-CoV2/FLU/RSV Today R09.89 - Other specified symptoms and signs involving the circulatory and respiratory systems Coding Level of Care Code Est Pt Level 3 (87926) Diagnoses Acute viral syndrome B34.9
[2024-07-23 10:13] VITALS: BP 114/70; PULSE 73; TEMP 36.6; O2SAT 95
== END 2024-07-23 10:37 | disposition home or self-care (01) ==
PROVIDERS: PCP Nurse Practitioner Family; Visit Provider Physician Assistant
DX: B34.9 Viral infection, unspecified (principal)

== ENCOUNTER 2024-07-23 09:23 | Outpatient (REF) | payer MEDICARE, SELFPAY ==
--- OUTSIDE RECORDS SUMMARY | 2024-07-23 11:39 | XMS_ITS | Clinical Summary ---
Author Organization [address] [facility] Address [address] [place] [address] Phone Care Team Providers Care Refrigerator Cabinetmaker Name Role Phone Bakari Balderas MD Primary Care Provider Encounters Date Type Department Care Team Description 06/26/2024 Lab Requisition [facility] - Main Lab [address] [facility] [place] [address] NP Other correction (current) drug therapy; Vitamin D deficiency, unspecified; Essential (primary) hypertension from Last 3 Months Medical History Medical History Date Comments HTN (hypertension) 01/17/2012 DX:HTN (hyper tension) Historical Medical DX 01/17/2012 DX:Hyperli pidemia LDL goal < 130 Chronic airway obstruction, not elsewhere classified 01/17/2012 DX:Chronic airway obstructio n, not elsewhere classified Closed angle glaucoma 01/17/2012 DX:Closed angle glaucoma Breast cancer, left breast (CMS/HCC) 01/17/2012 DX:Breast cancer, left breast (HCC) Esophageal reflux 01/17/2012 DX:Esophageal reflux S/P laparoscopic cholecystectomy 01/17/2012 DX:S/P laparoscopic cholecystectomy Family History Medical History Relation Name Comments Stroke Sister 1 Relation Name Status Comments Sister 1 Sister 2 Social History Tobacco Use Types Packs/Day Years Used Date Smoking Tobacco: Never Alcohol Use Standard Drinks/Week Comments Not Asked 0 (1 standard drink = 0.6 oz pur e alcohol) Comments Unknown Sex and Gender Information Value Date Recorded Sex Assigned at Not on file Legal Sex Female 2:54 AM EST Gender Identity Not on file Sexual Orientation Not on file Obstetrics History Plan of Treatment Health Maintenance Due Date Last Done Comments COVID-19 Vaccine (#1) 08[birth year]14/1940 DTaP,Tdap,and Td Vaccines (1 - Tdap) 1941 Pneumococcal Vaccine: 50+ Ye ars (1 of 2 - PCV) 1953 Zoster Vaccines (1 of 2) 1953 RSV Immunization Patients 60 + Years Old (1 - 1-dose 75+ series) 2009 Influenza Vaccine (#1) 2024 Depression Screening 07/01/2024 Falls Risk Assessment 07/01/2024 Medicare Annual Wellness Visit 07/01/2024 Osteoporosis Screening (Bone Density Screening) 07/01/2024 Social Influencers of Health Screening 07/01/2024 Hypertension/CHF/CAD Annual BMP Blood Test 06/26/2025 06/26/2024 Cholesterol Screening (Lipid Panel) 06/26/2029 06/26/2024 HIB Vaccines Aged Out No longer eligi ble based on patient's age to complete this topic HPV Vaccines Aged Out No longer eligi ble based on patient's age to complete this topic Hepatitis A Vaccines Aged Out No long er eligible based on patient's age to complete this topic Hepatitis B Vaccines Aged Out No long er eligible based on patient's age to complete this topic IPV Vaccines Aged Out No longer eligi ble based on patient's age to complete this topic MMR Vaccines Aged Out No longer eligi ble based on patient's age to complete this topic Meningococcal ACWY Vaccine Aged Out N o longer eligible based on patient's age to complete this topic Meningococcal B Vacine Aged Out No lo nger eligible based on patient's age to complete this topic RSV Immunization Patients Un issac 20 months Aged Out No longer eligible b ased on patient's age to complete this topic Varicella Vaccines Aged Out No longer eligible based on patient's age to complete this topic Procedures Procedure Name Priority Date/Time Associated Diagnosis Comments TRIIODOTHYRONINE FREE Routine 06/26/2024 7:50 AM EST Other correction (current) drug therapy Vitamin D deficiency, unspecified Essential (primary) hypertension FREE THYROXINE WITH REFLEX TO FREE TRIIODOTHYRONINE Routine 06/26/2024 7:50 AM EST Other correction (current) drug therapy Vitamin D deficiency, unspecified Essential (primary) hypertension CBC WITH AUTO DIFFERENTIAL Routine 06/26/2024 7:50 AM EST Other machine long goods helper (current) drug therapy Vitamin D deficiency, unspecified Essential (primary) hypertension THYROID STIMULATING HORMONE WITH REFLEX TO FREE T4 AND FREE T3 Routine 06/26/2024 7:50 AM EST Other machine long goods helper (current) drug therapy Vitamin D deficiency, unspecified Essential (primary) hypertension CBC AND DIFFERENTIAL Routine 06/26/2024 7:50 AM EST Other machine long goods helper (current) drug therapy Vitamin D deficiency, unspecified Essential (primary) hypertension COMPREHENSIVE METABOLIC PANEL Routine 06/26/2024 7:50 AM EST Other machine long goods helper (current) drug therapy Vitamin D deficiency, unspecified Essential (primary) hypertension VITAMIN D 25 HYDROXY Routine 06/26/2024 7:50 AM EST Other correction (current) drug therapy Vitamin D deficiency, unspecified Essential (primary) hypertension LIPID PANEL WITH REFLEX TO DIRECT LDL Routine 06/26/2024 7:50 AM EST Other machine long goods helper (current) drug therapy Vitamin D deficiency, unspecified Essential (primary) hypertension from Last 3 Months Results * (ABNORMAL) Thyroid stimulating hormone with reflex to free t4 and free t3 (06/26/2024 7:50 AM EST) Pathologist [facility] TSH 4.18(H) 0.40 - 4.00 mcIU/mL LAB CHEMISTRY METHOD 06/26/2024 11:57 AM EST [facility] Blood Venous blood specimen / Unknown Venipuncture / Unknown 06/26/2024 7:50 AM EST 06/26/2024 10:[address] NP LAB BLOOD ORDERABLES Final R esult [facility] [address] [place] [address], * Free thyroxine with reflex to free triiodothyronine (06/26/2024 7:50 AM EST) Pathologist [facility] Free T4 1.06 0.70 - 1.80 ng/dL LAB CHEMISTRY METHOD 06/26/2024 12:22 PM EST [facility] Blood Venous blood specimen / Unknown Venipuncture / Unknown 06/26/2024 7:50 AM EST 06/26/2024 10:[address] NP LAB BLOOD ORDERABLES Final R esult [facility] [address] [place] [address], [place] [phone] * Lipid panel with reflex to direct LDL (06/26/2024 7:50 AM EST) Cholesterol 158 0 - 200 mg/dL LAB CHEMISTRY METHOD 06/26/2024 11:49 AM [facility] Triglycerides 63 0 - 150 mg/dL LAB CHEMISTRY METHOD 06/26/2024 11:49 AM [facility] HDL 67 >=40 mg/dL LAB CHEMISTRY METHOD 06/26/2024 11:49 AM [facility] LDL Calculated 78 0 - 100 mg/dL LAB CHEMISTRY METHOD 06/26/2024 11:49 AM [facility] VLDL Cholesterol Froylan 12.6 mg/dL LAB CHEMISTRY METHOD 06/26/2024 11:49 AM [facility] Non HDL Chol. (LDL+VLDL) 91 <145 mg/dL LAB CHEMISTRY METHOD 06/26/2024 11:49 AM [facility] Chol/HDL Ratio 2.4 0.0 - 4.4 LAB CHEMISTRY METHOD 06/26/2024 11:49 AM [facility] Blood Venous blood specimen / Unknown Venipuncture / Unknown 06/26/2024 7:50 AM EST 06/26/2024 10:[address] NP LAB BLOOD ORDERABLES Final R esult [facility] [address] [place] [address], * (ABNORMAL) CBC auto differential (06/26/2024 7:50 AM EST) WBC 4.6(L) 4.8 - 10.8 K/mcL LAB HEMETOLOGY METHOD 06/26/2024 11:24 AM [facility] RBC 4.30 3.80 - 4.80 M/mcL LAB HEMETOLOGY METHOD 06/26/2024 11:24 AM [facility] Hemoglobin 12.6 11.5 - 16.0 g/dL LAB HEMETOLOGY METHOD 06/26/2024 11:24 AM [facility] Hematocrit 39.6 35.0 - 47.0 % LAB HEMETOLOGY METHOD 06/26/2024 11:24 AM [facility] MCV 92.3 79.0 - 98.0 FL LAB HEMETOLOGY METHOD 06/26/2024 11:24 AM [facility] MCH 29.4 27.0 - 32.0 pcg LAB HEMETOLOGY METHOD 06/26/2024 11:24 AM [facility] MCHC 31.8(L) 32.0 - 37.0 g/dL LAB HEMETOLOGY METHOD 06/26/2024 11:24 AM [facility] RDW 14.4 11.0 - 15.0 % LAB HEMETOLOGY METHOD 06/26/2024 11:24 AM [facility] Platelets 194 130 - 400 K/mcL LAB HEMETOLOGY METHOD 06/26/2024 11:24 AM [facility] MPV 11.6(H) 7.0 - 11.0 FL LAB HEMETOLOGY METHOD 06/26/2024 11:24 AM [facility] NRBC 0.0 <1.0 % LAB HEMETOLOGY METHOD 06/26/2024 11:24 AM [facility] NRBC Absolute 0.00 <0.10 K/mcL LAB HEMETOLOGY METHOD 06/26/2024 11:24 AM [facility] Neutrophils Relative 53.9 % LAB HEMETOLOGY METHOD 06/26/2024 11:24 AM [facility] Lymphocytes Relative 27.0 % LAB HEMETOLOGY METHOD 06/26/2024 11:24 AM [facility] Monocytes Relative 15.2 % LAB HEMETOLOGY METHOD 06/26/2024 11:24 AM [facility] Eosinophils Relative 3.0 % LAB HEMETOLOGY METHOD 06/26/2024 11:24 AM [facility] Basophils Relative 0.7 % LAB HEMETOLOGY METHOD 06/26/2024 11:24 AM [facility] Immature Granulocytes Relative 0.2 % LAB HEMETOLOGY METHOD 06/26/2024 11:24 AM [facility] Neutrophils Absolute 2.48 1.50 - 7.00 K/mcL LAB HEMETOLOGY METHOD 06/26/2024 11:24 AM [facility] Lymphocytes Absolute 1.24 1.00 - 5.00 K/mcL LAB HEMETOLOGY METHOD 06/26/2024 11:24 AM [facility] Monocytes Absolute 0.70 0.20 - 1.00 K/mcL LAB HEMETOLOGY METHOD 06/26/2024 11:24 AM [facility] Eosinophils Absolute 0.14 0.00 - 0.50 K/mcL LAB HEMETOLOGY METHOD 06/26/2024 11:24 AM [facility] Basophils Absolute 0.03 0.00 - 0.20 K/mcL LAB HEMETOLOGY METHOD 06/26/2024 11:24 AM [facility] Immature Granulocytes Absolute 0.01 0.00 - 0.03 K/mcL LAB HEMETOLOGY METHOD 06/26/2024 11:24 AM EST [facility] Blood Venous blood specimen / Unknown Venipuncture / Unknown 06/26/2024 7:50 AM EST 06/26/2024 10:[address] NP LAB BLOOD ORDERABLES Final R esult Performing Organization Address City/[facility] de Phone Number [facility] [address] [place] [address], [place] [phone] * Vitamin D 25 hydroxy (06/26/2024 7:50 AM EST) Pathologist [facility] Vit D, 25-Hydroxy 41.5 30.0 - 80.0 ng/mL LAB CHEMISTRY METHOD 06/26/2024 11:57 AM EST [facility] Blood Venous blood specimen / Unknown Venipuncture / Unknown 06/26/2024 7:50 AM EST 06/26/2024 10:[address] NP LAB BLOOD ORDERABLES Final R esult Performing Organization Address [facility] de Phone Number [facility] [address] [place] [address], [place] [phone] * Triiodothyronine free (06/26/2024 7:50 AM EST) Pathologist [facility] T3, Free 365 230 - 420 pcg/dL LAB CHEMISTRY METHOD 06/26/2024 12:47 PM EST [facility] Blood Venous blood specimen / Unknown Venipuncture / Unknown 06/26/2024 7:50 AM EST 06/26/2024 10:[address] NP LAB BLOOD ORDERABLES Final R esult Performing Organization Address City/[facility] Co de Phone Number [facility] [address] [place] [address], [place] [phone] * (ABNORMAL) Comprehensive metabolic panel (06/26/2024 7:50 AM EST) Sodium 141 133 - 145 mmol/L LAB CHEMISTRY METHOD 06/26/2024 11:49 AM [facility] Potassium 4.9 3.5 - 5.5 mmol/L LAB CHEMISTRY METHOD 06/26/2024 11:49 AM [facility] Chloride 105 96 - 110 mmol/L LAB CHEMISTRY METHOD 06/26/2024 11:49 AM [facility] CO2 32 21 - 32 mmol/L LAB CHEMISTRY METHOD 06/26/2024 11:49 AM [facility] Anion Gap 4 3 - 11 LAB CHEMISTRY METHOD 06/26/2024 11:49 AM [facility] Glucose 93 70 - 100 mg/dL LAB CHEMISTRY METHOD 06/26/2024 11:49 AM [facility] BUN 15 5 - 25 mg/dL LAB CHEMISTRY METHOD 06/26/2024 11:49 AM [facility] Creatinine 1.00 0.50 - 1.10 mg/dL LAB CHEMISTRY METHOD 06/26/2024 11:49 AM [facility] eGFR 54(L) >=60 mL/min/1. 73m2 LAB CHEMISTRY METHOD 06/26/2024 11:49 AM [facility] Comment:Calculation based on the??Chronic Kidney Disease Epidemiology Collaboration (CKD-EPI) equation refit??without adjustment for race. BUN/Creatinine Ratio 15.0 LAB CHEMISTRY METHOD 06/26/2024 11:49 AM [facility] Calcium 9.4 8.5 - 10.5 mg/dL LAB CHEMISTRY METHOD 06/26/2024 11:49 AM [facility] AST (SGOT) 23 10 - 42 unit/L LAB CHEMISTRY METHOD 06/26/2024 11:49 AM [facility] ALT (SGPT) 30 10 - 60 unit/L LAB CHEMISTRY METHOD 06/26/2024 11:49 AM [facility] Alkaline Phosphatase 65 42 - 121 unit/L LAB CHEMISTRY METHOD 06/26/2024 11:49 AM [facility] Total Protein 6.7 6.0 - 8.0 g/dL LAB CHEMISTRY METHOD 06/26/2024 11:49 AM [facility] Albumin 3.7 3.2 - 5.0 g/dL LAB CHEMISTRY METHOD 06/26/2024 11:49 AM [facility] Total Bilirubin 0.7 0.0 - 1.4 mg/dL LAB CHEMISTRY METHOD 06/26/2024 11:49 AM [facility] Blood Venous blood specimen / Unknown Venipuncture / Unknown 06/26/2024 7:50 AM EST 06/26/2024 10:[address] NP LAB BLOOD ORDERABLES Final R esult [facility] [address] [place] [address], from Last 3 Months Insurance MEDICARE [facility] Care Teams Refrigerator Cabinetmaker Relationship Specialty Start Date End Date Bakari Balderas MD [address] [place] [address] [place] [address] PCP - General Internal Medicine 06/12/11
--- OUTSIDE RECORDS SUMMARY | 2024-07-23 11:39 | XMS_ITS | Encounter Summary ---
Author Organization [facility] Address [address] [place] [address] Care Team Providers Care Bath House Attendant Name Role Phone Bakari Balderas MD Primary Care Provider Encounter Details Date Type Department Care Team (Late st Contact Info) Description 06/26/2024 Lab Requisition [facility] - Main Lab [address] [facility] [place] [address] NP [address] [place], [place] Other intermediate accountant (current) drug therapy; Vitamin D deficiency, unspecified; Essential (primary) hypertension Social History Tobacco Use Types Packs/Day Years Used Date Smoking Tobacco: Never Alcohol Use Standard Drinks/Week Comments Not Asked 0 (1 standard drink = 0.6 oz pur e alcohol) Comments Unknown Sex and Gender Information Value Date Recorded Sex Assigned at Not on file Legal Sex Female 2:54 AM EST Gender Identity Not on file Sexual Orientation Not on file documented as of this encounter Plan of Treatment Not on file documented as of this encounter Procedures Procedure Name Priority Date/Time Associated Diagnosis Comments THYROID STIMULATING HORMONE WITH REFLEX TO FREE T4 AND FREE T3 Routine 06/26/2024 7:50 AM EST Other intermediate accountant (current) drug therapy Vitamin D deficiency, unspecified Essential (primary) hypertension FREE THYROXINE WITH REFLEX TO FREE TRIIODOTHYRONINE Routine 06/26/2024 7:50 AM EST Other nursing home (current) drug therapy Vitamin D deficiency, unspecified Essential (primary) hypertension LIPID PANEL WITH REFLEX TO DIRECT LDL Routine 06/26/2024 7:50 AM EST Other intermediate accountant (current) drug therapy Vitamin D deficiency, unspecified Essential (primary) hypertension CBC WITH AUTO DIFFERENTIAL Routine 06/26/2024 7:50 AM EST Other nursing home (current) drug therapy Vitamin D deficiency, unspecified Essential (primary) hypertension VITAMIN D 25 HYDROXY Routine 06/26/2024 7:50 AM EST Other nursing home (current) drug therapy Vitamin D deficiency, unspecified Essential (primary) hypertension CBC AND DIFFERENTIAL Routine 06/26/2024 7:50 AM EST Other intermediate accountant (current) drug therapy Vitamin D deficiency, unspecified Essential (primary) hypertension TRIIODOTHYRONINE FREE Routine 06/26/2024 7:50 AM EST Other nursing home (current) drug therapy Vitamin D deficiency, unspecified Essential (primary) hypertension COMPREHENSIVE METABOLIC PANEL Routine 06/26/2024 7:50 AM EST Other intermediate accountant (current) drug therapy Vitamin D deficiency, unspecified Essential (primary) hypertension documented in this encounter Results * Triiodothyronine free (06/26/2024 7:50 AM EST) T3, Free 365 230 - 420 pcg/dL LAB CHEMISTRY METHOD 06/26/2024 12:47 PM EST [facility] Blood Venous blood specimen / Unknown Venipuncture / Unknown 06/26/2024 7:50 AM EST 06/26/2024 10:[address] NP LAB BLOOD ORDERABLES Final R esult [facility] [address] [place] [address], [place] [phone] * Free thyroxine with reflex to free triiodothyronine (06/26/2024 7:50 AM EST) Free T4 1.06 0.70 - 1.80 ng/dL LAB CHEMISTRY METHOD 06/26/2024 12:22 PM [facility] Blood Venous blood specimen / Unknown Venipuncture / Unknown 06/26/2024 7:50 AM EST 06/26/2024 10:[address] NP LAB BLOOD ORDERABLES Final R esult [facility] [address] [place] [address], * (ABNORMAL) CBC auto differential (06/26/2024 7:50 AM EST) WBC 4.6(L) 4.8 - 10.8 K/mcL LAB HEMETOLOGY METHOD 06/26/2024 11:24 AM [facility] RBC 4.30 3.80 - 4.80 M/mcL LAB HEMETOLOGY METHOD 06/26/2024 11:24 AM [facility] Hemoglobin 12.6 11.5 - 16.0 g/dL LAB HEMETOLOGY METHOD 06/26/2024 11:24 AM [facility] Hematocrit 39.6 35.0 - 47.0 % LAB HEMETOLOGY METHOD 06/26/2024 11:24 AM [facility] MCV 92.3 79.0 - 98.0 FL LAB HEMETOLOGY METHOD 06/26/2024 11:24 AM [facility] MCH 29.4 27.0 - 32.0 pcg LAB HEMETOLOGY METHOD 06/26/2024 11:24 AM [facility] MCHC 31.8(L) 32.0 - 37.0 g/dL LAB HEMETOLOGY METHOD 06/26/2024 11:24 AM [facility] RDW 14.4 11.0 - 15.0 % LAB HEMETOLOGY METHOD 06/26/2024 11:24 AM [facility] Platelets 194 130 - 400 K/mcL LAB HEMETOLOGY METHOD 06/26/2024 11:24 AM [facility] MPV 11.6(H) 7.0 - 11.0 FL LAB HEMETOLOGY METHOD 06/26/2024 11:24 AM [facility] NRBC 0.0 <1.0 % LAB HEMETOLOGY METHOD 06/26/2024 11:24 AM [facility] NRBC Absolute 0.00 <0.10 K/mcL LAB HEMETOLOGY METHOD 06/26/2024 11:24 AM [facility] Neutrophils Relative 53.9 % LAB HEMETOLOGY METHOD 06/26/2024 11:24 AM [facility] Lymphocytes Relative 27.0 % LAB HEMETOLOGY METHOD 06/26/2024 11:24 AM [facility] Monocytes Relative 15.2 % LAB HEMETOLOGY METHOD 06/26/2024 11:24 AM [facility] Eosinophils Relative 3.0 % LAB HEMETOLOGY METHOD 06/26/2024 11:24 AM [facility] Basophils Relative 0.7 % LAB HEMETOLOGY METHOD 06/26/2024 11:24 AM [facility] Immature Granulocytes Relative 0.2 % LAB HEMETOLOGY METHOD 06/26/2024 11:24 AM [facility] Neutrophils Absolute 2.48 1.50 - 7.00 K/mcL LAB HEMETOLOGY METHOD 06/26/2024 11:24 AM [facility] Lymphocytes Absolute 1.24 1.00 - 5.00 K/mcL LAB HEMETOLOGY METHOD 06/26/2024 11:24 AM [facility] Monocytes Absolute 0.70 0.20 - 1.00 K/mcL LAB HEMETOLOGY METHOD 06/26/2024 11:24 AM [facility] Eosinophils Absolute 0.14 0.00 - 0.50 K/mcL LAB HEMETOLOGY METHOD 06/26/2024 11:24 AM EST [facility] Basophils Absolute 0.03 0.00 - 0.20 K/[facility] LAB HEMETOLOGY METHOD 06/26/2024 11:24 AM EST [facility] Immature Granulocytes Absolute 0.01 0.00 - 0.03 K/[facility] LAB HEMETOLOGY METHOD 06/26/2024 11:24 AM EST [facility] Blood Venous blood specimen / Unknown Venipuncture / Unknown 06/26/2024 7:50 AM EST 06/26/2024 10:[address] NP LAB BLOOD ORDERABLES Final R esult Performing Organization Address [facility]/ZIP Co de Phone Number [facility] [address] [place] [address], [place] [phone] * (ABNORMAL) Thyroid stimulating hormone with reflex to free t4 and free t3 (06/26/2024 7:50 AM EST) TSH 4.18(H) 0.40 - 4.00 mcIU/mL LAB CHEMISTRY METHOD 06/26/2024 11:57 AM EST [facility] Blood Venous blood specimen / Unknown Venipuncture / Unknown 06/26/2024 7:50 AM EST 06/26/2024 10:[address] NP LAB BLOOD ORDERABLES Final R esult Performing Organization Address City/[facility]/ZIP Co de Phone Number [facility] [address] [place] [address], [place] [phone] * (ABNORMAL) Comprehensive metabolic panel (06/26/2024 7:50 AM EST) Sodium 141 133 - 145 mmol/L LAB CHEMISTRY METHOD 06/26/2024 11:49 AM EST [facility] Potassium 4.9 3.5 - 5.5 mmol/L LAB CHEMISTRY METHOD 06/26/2024 11:49 AM [facility] Chloride 105 96 - 110 mmol/L LAB CHEMISTRY METHOD 06/26/2024 11:49 AM [facility] CO2 32 21 - 32 mmol/L LAB CHEMISTRY METHOD 06/26/2024 11:49 AM [facility] Anion Gap 4 3 - 11 LAB CHEMISTRY METHOD 06/26/2024 11:49 AM [facility] Glucose 93 70 - 100 mg/dL LAB CHEMISTRY METHOD 06/26/2024 11:49 AM [facility] BUN 15 5 - 25 mg/dL LAB CHEMISTRY METHOD 06/26/2024 11:49 AM [facility] Creatinine 1.00 0.50 - 1.10 mg/dL LAB CHEMISTRY METHOD 06/26/2024 11:49 AM [facility] eGFR 54(L) >=60 mL/min/1. 73m2 LAB CHEMISTRY METHOD 06/26/2024 11:49 AM [facility] Comment:Calculation based on the??Chronic Kidney Disease Epidemiology Collaboration (CKD-EPI) equation refit??without adjustment for race. BUN/Creatinine Ratio 15.0 LAB CHEMISTRY METHOD 06/26/2024 11:49 AM [facility] Calcium 9.4 8.5 - 10.5 mg/dL LAB CHEMISTRY METHOD 06/26/2024 11:49 AM [facility] AST (SGOT) 23 10 - 42 unit/L LAB CHEMISTRY METHOD 06/26/2024 11:49 AM [facility] ALT (SGPT) 30 10 - 60 unit/L LAB CHEMISTRY METHOD 06/26/2024 11:49 AM [facility] Alkaline Phosphatase 65 42 - 121 unit/L LAB CHEMISTRY METHOD 06/26/2024 11:49 AM [facility] Total Protein 6.7 6.0 - 8.0 g/dL LAB CHEMISTRY METHOD 06/26/2024 11:49 AM EST [facility] Albumin 3.7 3.2 - 5.0 g/dL LAB CHEMISTRY METHOD 06/26/2024 11:49 AM EST [facility] Total Bilirubin 0.7 0.0 - 1.4 mg/dL LAB CHEMISTRY METHOD 06/26/2024 11:49 AM EST [facility] Blood Venous blood specimen / Unknown Venipuncture / Unknown 06/26/2024 7:50 AM EST 06/26/2024 10:[address] NP LAB BLOOD ORDERABLES Final R esult Performing Organization Address City/[facility]/ZIP Co de Phone Number [facility] [address] [place] [address], [place] [phone] * Vitamin D 25 hydroxy (06/26/2024 7:50 AM EST) Vit D, 25-Hydroxy 41.5 30.0 - 80.0 ng/mL LAB CHEMISTRY METHOD 06/26/2024 11:57 AM EST [facility] Blood Venous blood specimen / Unknown Venipuncture / Unknown 06/26/2024 7:50 AM EST 06/26/2024 10:[address] NP LAB BLOOD ORDERABLES Final R esult [facility] [address] [place] [address], [place] [phone] * Lipid panel with reflex to direct LDL (06/26/2024 7:50 AM EST) Cholesterol 158 0 - 200 mg/dL LAB CHEMISTRY METHOD 06/26/2024 11:49 AM EST [facility] Triglycerides 63 0 - 150 mg/dL LAB CHEMISTRY METHOD 06/26/2024 11:49 AM EST [facility] HDL 67 >=40 mg/dL LAB CHEMISTRY METHOD 06/26/2024 11:49 AM EST [facility] LDL Calculated 78 0 - 100 mg/dL LAB CHEMISTRY METHOD 06/26/2024 11:49 AM [facility] VLDL Cholesterol Froylan 12.6 mg/dL LAB CHEMISTRY METHOD 06/26/2024 11:49 AM EST [facility] Non HDL Chol. (LDL+VLDL) 91 <145 mg/dL LAB CHEMISTRY METHOD 06/26/2024 11:49 AM [facility] Chol/HDL Ratio 2.4 0.0 - 4.4 LAB CHEMISTRY METHOD 06/26/2024 11:49 AM [facility] Blood Venous blood specimen / Unknown Venipuncture / Unknown 06/26/2024 7:50 AM EST 06/26/2024 10:47 AM EST [address] PROCESS TECHNICIAN LAB BLOOD ORDERABLES Final R esult [facility] [address] [place] [address], documented in this encounter Visit Diagnoses Diagnosis Other nursing home (current) drug therapy Vitamin D deficiency, unspecified Essential (primary) hypertension Unspecified essential hypertension documented in this encounter Care Teams Bath House Attendant Relationship Specialty Start Date End Date Bakari Balderas MD [address] [place] [address] [place] [address] PCP - General Internal Medicine 06/12/11 documented as of this encounter
[2024-07-23 14:11] LABS: Influenza A PCR POSITIVE (Negative); Influenza B PCR NEGATIVE (Negative); Resp Syncy Virus RNA Qual PCR NEGATIVE (Negative); SARS COV2 PCR INHOUSE NEGATIVE (Negative)
== END 2024-07-23 09:24 | disposition home or self-care (01) ==
LOC: HO.LAB 09:23
PROVIDERS: PCP Nurse Practitioner Family; Visit Provider Physician Assistant
DX: B34.9 Viral infection, unspecified (principal); R09.89 Other specified symptoms and signs involving the circulatory and respiratory systems; R50.9 Fever, unspecified
CPT/HCPCS: 0241U; 99212